=== PATIENT | female | born 1945 | race Caucasian/White ===

== ENCOUNTER 2019-12-02 09:42 | Outpatient (CLI) | payer MEDICARE, SELFPAY ==
--- NOTE | 2019-12-02 | ECHO_ITS ---
Patient Info Name: Loli Arreola Age: 74 years : 1945 Gender: Female Ht: 65 in Wt: 126 lbs BSA: 1.62 m2 HR: 60 bpm BP: 149 / 95 mmHg Heart Rhythm: Sinus Rhythm Technical Quality: Good Exam Date: 12/02/2019 10:19 AM Exam Location: [facility] Patient Status: Outpatient Admit Date: 12/02/2019 Staff Ordering Physician: Glenda, James Matias MD Life Skills Coordinator Volunteer: [employer] RDCS Attending Provider: Glenda, James Matias MD Referring Physician: Gerald PENA; Exam Type: CA echo doppler color flow Study Info Indications R00.2 - Palpitations Complete two-dimensional, color flow and Doppler transthoracic echocardiogram is performed. Strain analysis performed. History/Risk Factors Palpitations. Summary 1. Complete two-dimensional, color flow and Doppler transthoracic echocardiogram is performed. 2. Left ventricular chamber dimension is normal. 3. Left ventricular systolic function is normal, estimated at 60-65%. 4. The left ventricular diastolic function is grade I diastolic dysfunction. 5. E/e' 10 is mildly elevated. 6. Global longitudinal strain is normal at -17.3%. 7. There is mild mitral valve regurgitation. 8. There is trace tricuspid valve regurgitation. 9. No pulmonary hypertension, estimated pulmonary arterial systolic pressure is 26 mmHg. Left Ventricle E/e' 10 is mildly elevated. Global longitudinal strain is normal at -17.3%. Left ventricular chamber dimension is normal. Left ventricular systolic function is normal, estimated at 60-65%. The left ventricular diastolic function is grade I diastolic dysfunction. Right Ventricle Right ventricular chamber dimension is normal. Right ventricular systolic function is normal. Left Atria Left atrial chamber dimension is normal. Right Atria Right atrial chamber dimension is normal. Aortic Valve The aortic valve is trileaflet. There is no aortic valve stenosis. There is no aortic valve regurgitation. Pulmonic Valve There is no pulmonic regurgitation. Mitral Valve There is no mitral valve stenosis. There is mild mitral valve regurgitation. Tricuspid Valve There is trace tricuspid valve regurgitation. No pulmonary hypertension, estimated pulmonary arterial systolic pressure is 26 mmHg. Pericardium/Pleural There is no pericardial effusion. Inferior Vena Cava Normal inferior vena cava with >50% collapse upon inspiration consistent with normal right atrial pressure, 5 mmHg. Aorta The aortic root size at the sinus of Valsalva is normal. Left Ventricular Outflow Tract Name Value Normal LVOT 2D LVOT Diameter 1.9 cm LVOT Doppler LVOT Peak Gradient 4 mmHg LVOT Mean Gradient 2 mmHg LVOT VTI 22 cm LVOT VTI/AV VTI Ratio 0.7 LVOT Stroke Volume 65 ml LVOT CO 4.3 l/min LVOT CI 2.7 l/min/m2 Mitral Valve
--- NOTE | 2019-12-05 13:39 | P.PCNHOL_ITS ---
Holter/Event Monitor Holter/Event Monitor Date of procedure: 12/02/19 Procedure Type: 48 hour Holter monitor Diagnosis: palpitations Indications: palpitation Image/Tracing Quality: favorable Finding: the basic cardiac rhythm is sinus with full AV conduction. . The heart rate varied from a minimum of 44 to a maximum of 138 the mean rate was 69. There were no significant pauses or abnormalities of AV conduction the longest RR interval recorded was 1.5 seconds. Supraventricular ectopic activity was generally infrequent consisting of some PACs there were also 2 runs of supraventricular tachycardia the longest of which was 12 beats in duration the shorter run was only 4 beats in duration. Mild both of these occurred in the middle of the night between 205 and 2:46 a.m.. There were no examples of atrial fibrillation. Ventricular ectopic activity did not occur at all during this exam the patient submitted a diary in which 13 episodes of palpitations were recorded. One of these was sinus rhythm with a PAC the other 12 episodes were sinus rhythm with no ectopic activity at all. The episodes of SVT mentioned above occurred in the middle of the night presumably during sleeping hours and were not symptomatic. Conclusion: 1. Normal sinus rhythm with normal heart rate variability 2. infrequent episodes of atrial ectopic activity including 2 brief self- limited episodes of SVT which occurred during sleeping hours and are not symptomatic. 3. No ventricular ectopic activity at all Maikel Weinberg MD [facility]
== END 2019-12-02 09:43 | disposition home or self-care (01) ==
LOC: ANHCARD 09:45
PROVIDERS: PCP Internal Medicine; Visit Provider Internal Medicine
DX: R00.2 Palpitations (principal)
CPT/HCPCS: 93225; 93226; 93306

== ENCOUNTER 2021-03-09 22:23 | Emergency (ER) | payer MEDICARE, SELFPAY ==
[2021-03-09 22:25] VITALS: BP 145/99; PULSE 74; RESP 19; TEMP 36.4; O2SAT 97
--- NOTE | 2021-03-09 23:08 | PC.NURSE ---
Pt stated I just talked to my MD and since I'm feeling better he said I could go home and come back if it happens again. Ambulated out of ed with at side. steady, even, unassisted gait.
== END 2021-03-09 23:26 | disposition left against medical advice (07) ==
PROVIDERS: PCP Internal Medicine
DX: R10.9 Unspecified abdominal pain (principal)
CPT/HCPCS: 99199

== ENCOUNTER 2024-05-31 14:09 | Emergency (ER) | payer MEDICARE, SELFPAY ==
[2024-05-31 14:12] VITALS: BP 147/80; PULSE 91; RESP 16; TEMP 36.5; O2SAT 98
--- NOTE | 2024-05-31 15:17 | ED.DIZZY ---
HPI - Dizziness General Chief Complaint: Dizziness <Ezra Warren PA-C - Last Filed: 05/31/24 15:29> Stated Complaint: Dizziness/nausea-has inner ear infect <JANNA Rojas Last Filed: 05/31/24 15:29> Time Seen by Provider: 05/31/24 17:10 <Ezra Warren PA-C - Last Filed: 05/31/24 15:29> Focused HPI: This is a 79-year-old female who presents ED for chief complaint of dizziness x1 day. She recently just got over having the flu. States that she feels very full in her sinuses and his fullness to the bilateral ears, worse on the left. States that the dizziness is worse when turning to the left. States that she told her PCP about this who prescribed amoxicillin which she has taken for the past 2 days. States that she tried an A[place] maneuver at home which aided her symptoms enough to be able to drive to the ER. Denies fevers, chills, ear pain, mastoid pain, numbness, weakness. GENERAL: Well-appearing, well-nourished, and in no acute distress. HEAD: Normocephalic, atraumatic. ENT: Right TM mildly injected. No effusion. External canal normal. Left TM with serous effusion. Does not appear to be purulent. External canal normal. CHEST: Clear to auscultation. No respiratory distress. HEART: Regular rate and rhythm. NEURO: Alert and oriented x3. Patient screened in triage and initial orders placed. Additional care and disposition to be based upon diagnostic testing and treatment. <Ezra Warren PA-C - Last Filed: 05/31/24 15:29> Source: patient <JANNA Rojas Last Filed: 05/31/24 15:29> Mode of arrival: ambulatory <JANNA Rojas Last Filed: 05/31/24 15:29> Limitations: no limitations <JANNA Rojas Last Filed: 05/31/24 15:29> Related Data Allergies/Adverse Reactions: Allergies Allergy/AdvReac Type Severity Reaction Status Date / Time nickel Allergy Unknown * Verified 05/31/24 14:10 Alternaria Tenuis Allergy Unknown * Uncoded 05/31/24 14:10 <Ezra Warren PA-C - Last Filed: 05/31/24 15:29> Review of Systems Review of Systems: CONSTITUTIONAL: Denies fever EYES: Denies visual changes ENT: Reports congestion CARDIOVASCULAR: Denies chest pain RESPIRATORY: Denies dyspnea. GASTROINTESTINAL: Reports nausea, vomiting NEUROLOGIC: Denies numbness, or weakness. <Mila Sheriff PA-C - Last Filed: 05/31/24 19:24> All systems reviewed & are unremarkable except as noted in HPI and below <Mila Sheriff PA-C - Last Filed: 05/31/24 19:24> PMFSH Past Medical History Medical History: Medical History (Updated 05/31/24 @ 19:20 by Mila Sheriff PA-C) Vertigo <Ezra Warren PA-C - Last Filed: 05/31/24 15:29> Social History Social History: Social History (Updated 05/31/24 @ 17:43 by Mila Sheriff PA-C) Substance use: never <Ezra Warren PA-C - Last Filed: 05/31/24 15:29> Exam Narrative: GENERAL: Well-appearing, well-nourished, and in no acute distress. HEAD: Normocephalic, atraumatic. EYES: PERRLA and EOMI. ENT: Nares clear, no rhinorrhea or epistaxis. Mucous membranes moist. Oropharynx without tonsillar hypertrophy exudate or other lesions. Bilateral TMs pearly hurtado non-bulging. Serous effusion noted on the left NECK: Supple. No adenopathy or masses. CHEST: Clear to auscultation. No respiratory distress. No wheezes rales or rhonchi HEART: Regular rate and rhythm. No murmur heard. Normal peripheral pulses. EXTREMITIES: Normal range of motion. No edema. Strength equal in bilateral upper and lower extremities (5/5) SKIN: Warm, dry, no rash. NEURO: No focal deficits. Alert and oriented x3. Cranial nerves 2-12 grossly intact. Normal heel to krueger PSYCH: Normal mood and affect <Mila Sheriff PA-C - Last Filed: 05/31/24 19:24> Course Course Emergency Course: Patient updated on her workup. Reports feeling better. Ambulatory with a steady gait. Ready for discharge <Mila Sheriff PA-C - Last Filed: 05/31/24 19:24> Vital Signs Vital signs: Vital Signs Temperature 97.7 F 05/31/24 14:12 Pulse Rate 91 05/31/24 14:12 Respiratory Rate 16 05/31/24 14:12 Blood Pressure 147/80 H 05/31/24 14:12 Pulse Oximetry 98 05/31/24 14:12 Temperature 97.7 F 05/31/24 14:12 Pulse Rate 65 05/31/24 17:01 Respiratory Rate 16 05/31/24 17:01 Blood Pressure 135/76 05/31/24 17:01 Pulse Oximetry 99 05/31/24 17:01 <JANNA Rojas Last Filed: 05/31/24 15:29> Vital Signs Temperature 97.7 F 05/31/24 14:12 Pulse Rate 91 05/31/24 14:12 Respiratory Rate 16 05/31/24 14:12 Blood Pressure 147/80 H 05/31/24 14:12 Pulse Oximetry 98 05/31/24 14:12 Temperature 97.7 F 05/31/24 14:12 Pulse Rate 65 05/31/24 17:01 Respiratory Rate 16 05/31/24 17:01 Blood Pressure 135/76 05/31/24 17:01 Pulse Oximetry 99 05/31/24 17:01 <Mila Sheriff PA-C - Last Filed: 05/31/24 19:24> MDM - Dizziness MDM Narrative Medical decision making narrative: Patient presents the emergency department for acute on chronic dizziness. She is afebrile and nontoxic appearing. Her vitals are stable. CBC metabolic panel without concerning findings. EKG without concerning changes. Patient was hydrated with IV fluids; given meclizine, Zofran. Patient was updated on her workup and agrees with plan of care. Reports feeling better. Ambulatory with a steady gait. She is to follow up with primary provider. She was given warnings to return to the ER <JANNA Quiles Last Filed: 05/31/24 19:24> Differential Diagnosis Differential diagnosis: Likely adverse reaction to drug, benign paroxysmal positional vertigo, orthostatic hypotension and other (Serous otitis media) <Mila Sheriff PA-C - Last Filed: 05/31/24 19:24> Lab Data Attestation: I reviewed the patient's lab results. <Mila Sheriff PA-C - Last Filed: 05/31/24 19:24> Result diagrams: 05/31/24 15:25 05/31/24 15:25 <Ezra Warren PA-C - Last Filed: 05/31/24 15:29> Labs: Lab Results 05/31/24 Range/Units 15:25 WBC 5.1 (4.5-10.0) K/mm3 RBC 4.35 (4.2-5.4) M/mm3 Hgb 14.6 (12.0-15.0) g/dL Hct 42.9 (37.0-47.0) % MCV 98.6 (80-100) fl MCH 33.6 (26-34) pg MCHC 34.0 (32-36) g/dl RDW 11.7 (11.5-14.5) % Plt Count 221 (150-375) k/mm3 MPV 10.0 (7.4-10.4) fl Immature Gran % (Auto) 0.4 (0-0.5) % Neut % (Auto) 50.3 (45.5-73.1) % Lymph % (Auto) 40.9 (18.3-44.2) % [place] % (Auto) 7.4 (2.6-8.5) % Eos % (Auto) 0.4 (0-4.4) % Baso % (Auto) 0.6 (0.2-1.2) % Lymph # (Auto) 2.09 (0.9-3.2) K/mm3 [place] # (Auto) 0.4 (0.1-0.6) K/mm3 Eos # (Auto) 0.0 (0-0.3) K/mm3 Baso # (Auto) 0.0 (0.0-0.1) K/mm3 Abs Immat Gran (auto) 0.02 (0.00-0.031) K/mm3 Absolute Neuts (auto) 2.6 (1.3-6.7) K/mm3 Absolute Nucleated RBC 0.000 (0.0-0.012) K/mm3 Nucleated RBC % 0.0 (0.0-0.2) % PT 13.6 (11.1-14.7) Seconds INR 1.0 APTT 25.1 (22.3-36.8) Seconds Sodium 140 (137-145) mmol/L Potassium 4.1 (3.4-5.0) mmol/L Chloride 107 (98-107) mmol/L Carbon Dioxide 25 (22-30) mmol/L Anion Gap 8 (4-12) mmol/L BUN 22 H (7-17) mg/dL Creatinine 0.71 (0.7-1.0) mg/dL Estim Creat Clear Calc 51 ml/min Estimated GFR > 60 (59 - ) Glucose 96 (65-110) mg/dL Calcium 9.1 (8.4-10.2) mg/dL Total Bilirubin 0.3 (0.2-1.3) mg/dL AST 29 (14-36) U/L ALT 24 (6-35) U/L Alkaline Phosphatase 59 (38-126) U/L Total Protein 7.0 (6.3-8.2) g/dL Albumin 4.4 (3.5-5.1) g/dL <Ezra Warren PA-C - Last Filed: 05/31/24 15:29> Lab Results 05/31/24 Range/Units 15:25 WBC 5.1 (4.5-10.0) K/mm3 RBC 4.35 (4.2-5.4) M/mm3 Hgb 14.6 (12.0-15.0) g/dL Hct 42.9 (37.0-47.0) % MCV 98.6 (80-100) fl MCH 33.6 (26-34) pg MCHC 34.0 (32-36) g/dl RDW 11.7 (11.5-14.5) % Plt Count 221 (150-375) k/mm3 MPV 10.0 (7.4-10.4) fl Immature Gran % (Auto) 0.4 (0-0.5) % Neut % (Auto) 50.3 (45.5-73.1) % Lymph % (Auto) 40.9 (18.3-44.2) % [place] % (Auto) 7.4 (2.6-8.5) % Eos % (Auto) 0.4 (0-4.4) % Baso % (Auto) 0.6 (0.2-1.2) % Lymph # (Auto) 2.09 (0.9-3.2) K/mm3 [place] # (Auto) 0.4 (0.1-0.6) K/mm3 Eos # (Auto) 0.0 (0-0.3) K/mm3 Baso # (Auto) 0.0 (0.0-0.1) K/mm3 Abs Immat Gran (auto) 0.02 (0.00-0.031) K/mm3 Absolute Neuts (auto) 2.6 (1.3-6.7) K/mm3 Absolute Nucleated RBC 0.000 (0.0-0.012) K/mm3 Nucleated RBC % 0.0 (0.0-0.2) % PT 13.6 (11.1-14.7) Seconds INR 1.0 APTT 25.1 (22.3-36.8) Seconds Sodium 140 (137-145) mmol/L Potassium 4.1 (3.4-5.0) mmol/L Chloride 107 (98-107) mmol/L Carbon Dioxide 25 (22-30) mmol/L Anion Gap 8 (4-12) mmol/L BUN 22 H (7-17) mg/dL Creatinine 0.71 (0.7-1.0) mg/dL Estim Creat Clear Calc 51 ml/min Estimated GFR > 60 (59 - ) Glucose 96 (65-110) mg/dL Calcium 9.1 (8.4-10.2) mg/dL Total Bilirubin 0.3 (0.2-1.3) mg/dL AST 29 (14-36) U/L ALT 24 (6-35) U/L Alkaline Phosphatase 59 (38-126) U/L Total Protein 7.0 (6.3-8.2) g/dL Albumin 4.4 (3.5-5.1) g/dL <Mila Sheriff PA-C - Last Filed: 05/31/24 19:24> ECG Data EKG #1: ECG completion date: 05/31/24 <Mila Sheriff PA-C - Last Filed: 05/31/24 19:24> EKG Interpretation: normal rate, sinus rhythm, no ST changes and normal QT <Mila Sheriff PA-C - Last Filed: 05/31/24 19:24> Critical Care Time Critical Care Time Critical Care Time: No <Mila Sheriff PA-C - Last Filed: 05/31/24 19:24> Discharge Plan Discharge Clinical Impression: Dizziness <Ezra Warren PA-C - Last Filed: 05/31/24 15:29> Patient Disposition: Home, Self-Care <Ezra Warren PA-C - Last Filed: 05/31/24 15:29> Condition: Improved <Ezra Warren PA-C - Last Filed: 05/31/24 15:29> Instructions: Dizziness (ED) <Ezra Warren PA-C - Last Filed: 05/31/24 15:29> Additional Instructions: Return to the emergency department if you experience fever, chest pain, shortness of breath, vomiting, weakness, numbness, or any other symptoms that are concerning to you. Take Zyrtec and use Flonase daily to help with congestion. Remain well hydrated. Meclizine as needed for dizziness Follow up with your primary care doctor and/or ENT <Ezra Warren PA-C - Last Filed: 05/31/24 15:29> Patient Language: Bengali <Ezra Warren PA-C - Last Filed: 05/31/24 15:29> Prescriptions: New meclizine 25 mg tablet 25 mg PO BID PRN (Reason: dizziness) Qty: 10 0RF <JANNA Rojas Last Filed: 05/31/24 15:29> Follow-up/Referrals: Jamey Sanchez MD [Physician] - Duarte,Jmaes Matias MD [Primary Care Provider] - <Ezra Warren PA-C - Last Filed: 05/31/24 15:29>
--- NOTE | 2024-05-31 15:20 | ECG_ITS ---
Test Date: 2024-05-31 15:29:18 Measurements Intervals [place] Rate: 67 P: 66 UT: 173 QRS: 84 QRSD: 102 T: 58 QT: 397 QTc: 420 Interpretive Statements SINUS RHYTHM POSSIBLE LEFT ATRIAL ENLARGEMENT [-0.1mV P WAVE IN V1/V2] INCOMPLETE RIGHT BUNDLE BRANCH BLOCK [90+ ms QRS DURATION, TERMINAL R IN V1/V2, 40+ ms S IN I/aVL/V4/V5/V6] NONSPECIFIC T-WAVE ABNORMALITY ABNORMAL ECG Electronically Signed On 06-01-2024 12:11:34 CDT by Santos Rayo M.D.
[2024-05-31 15:37] LABS: Basophils Percent Auto 0.6 % (0.2-1.2); Eosinophils Percent Auto 0.4 % (0-4.4); Hematocrit 42.9 % (37.0-47.0); Hemoglobin 14.6 g/dL (12.0-15.0); Immature Granulocyte Absolute 0.02 K/mm3 (0.00-0.031); Immature Granulocyte Percent A 0.4 % (0-0.5); Lymphocytes Absolute Auto 2.09 K/mm3 (0.9-3.2); Lymphocytes Percent Auto 40.9 % (18.3-44.2); Mean Corpuscular Hemoglobin 33.6 pg (26-34); Mean Corpuscular Volume 98.6 fl (80-100); Monocytes Absolute Auto 0.4 K/mm3 (0.1-0.6); Monocytes Percent Auto 7.4 % (2.6-8.5); Neutrophils Absolute Auto 2.6 K/mm3 (1.3-6.7); Neutrophils Percent Auto 50.3 % (45.5-73.1); Platelet Count Result 221 k/mm3 (150-375); Red Blood Count 4.35 M/mm3 (4.2-5.4); Red Cell Distribution Width 11.7 % (11.5-14.5); White Blood Count 5.1 K/mm3 (4.5-10.0)
[2024-05-31 15:46] LABS: Alanine Aminotransferase 24 U/L (6-35); Albumin Level 4.4 g/dL (3.5-5.1); Alkaline Phosphatase 59 U/L (38-126); Anion Gap 8 mmol/L (4-12); Aspartate Amino Transferase 29 U/L (14-36); Bilirubin,Total 0.3 mg/dL (0.2-1.3); Blood Urea Nitrogen 22 mg/dL (7-17); Calcium 9.1 mg/dL (8.4-10.2); Carbon Dioxide 25 mmol/L (22-30); Chloride 107 mmol/L (98-107); Estimated CRCL calculation 51 ml/min; Estimated Glomerular Filt Rate > 60; Glucose 96 mg/dL (65-110); Potassium 4.1 mmol/L (3.4-5.0); Sodium 140 mmol/L (137-145)
[2024-05-31 15:47] LABS: Prothrombin Time 13.6 Seconds (11.1-14.7)
[2024-05-31 15:48] LABS: Partial Thromboplastin Time 25.1 Seconds (22.3-36.8)
--- OUTSIDE RECORDS SUMMARY | 2024-05-31 15:52 | XMS_ITS | Clinical Summary ---
Author Organization [facility] Address [address] [address] Care Team Providers Care Rack Puncher Name Role Phone James Duarte MD Primary Care Provider Constantino Pat MD Unavailable [phone] Allergies Active Allergy Reactions Criticality Noted Date Comments Imiquimod Rash Medium 08/18/2017 Nickel Unknown Medications cholecalciferol (VITAMIN D-3) 2000 unit capsule Take 2 capsules (4,000 Units total) by mouth daily 8 Active estradioL (ESTRACE) 0.01 % (0.1 mg/gram) vaginal cream Insert 1 g into the vagina once a week 7 Active vitamin b complex tablet 7 Active vitamin K2 40 mcg tablet Take by mouth Active ammonium lactate (LAC-HYDRIN) 12 % lotion ammonium lactate 12 % lotion apply to feet twice daily as needed 1 Active denosumab (PROLIA) 60 mg/mL syringeIndications: postmenopausal osteoporosis and high fracture risk Inject 1 mL (60 mg total) under the skin once for 1 dose 1 mL 3 Active denosumab (PROLIA) 60 mg/mL syringe Inject 1 mL (60 mg total) under the skin once for 1 dose Inject one syringe SC every six months 1 mL 4 3 Active ondansetron ODT (ZOFRAN-ODT) 8 mg disintegrating tablet take one every four hours as needed for nausea Active Active Problems Problem Noted Date Diagnosed Date Meibomian gland dysfunction (MGD) of both eyes 0 04/03/2022 Assessment & Plan (04/03/2022 11:25 AM HOUSE CALLS NURSE): -pt c/o fluctuating vision; improves when using Blink drops (gtts) (+)meibomian gland dysfunction (MGD) both eyes (OU) today -rec warm compresses; discussed rice sock as alternative option to warm washcloth -ok to continue blink prn -follow PVD (posterior vitreous detachment), left 2022 Assessment & Plan (04/03/2022 11:25 AM HOUSE CALLS NURSE): -longstanding per pt (-)retinal h/b/t noted in either eye today -s/s retinal detachment (RD) discussed; RTC BE if any sudden increase in floaters, flashes of light, or curtain over vision arise -follow 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 She wears distance only glasses for driving. Release updated glasses prescription. 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 Malignant melanoma 08/13/2016 Melanoma in situ of the skin 08/08/2016 Basal cell carcinoma of skin 07/31/2016 Actinic keratosis 06/27/2016 Scar 06/27/2016 History of nonmelanoma skin cancer 12/05/2015 Rash 11/14/2015 Pain of foot 01/02/2014 Atrophic vaginitis 01/07/2012 Palpitations 07/18/2011 Osteoporosis 06/24/2010 Encounter for preventive health examination 07/14 Encounters Date Type Department Care Team Description 05/24/2024 9:30 AM CDT Infusion [facility] Injection Therapy [address] [facility] [address] [place] [address] Age-related osteoporosis without current pathological fracture (Primary Dx) from Last 3 Months Immunizations Immunization Administration Dates Next Due Influenza, Trivalent, High D ose, Split, Preservative Free, Intramuscular 12/03/2017,11/28/2016,12/31/2015,12/11 Influenza, Trivalent, Preser vative Free, Intramuscular 01/10/2011 Pfizer SARS-CoV-2 Monovalent Vaccination (12+ Yrs) PURPLE 10/30/2020,04/11/2020 Pneumococcal Conjugate PCV 13 08/29/2014 Pneumococcal Polysaccharide PPV23 01/10/2011 ZOSTER Recombinant 01/18/2018 Surgical History Surgery Date Site/Laterality Comments MD DELIVERY ONLY Section - (Added by TW Conv) MD TONSILLECTOMY PRIMARY/SEC ONDARY <AGE 12 Tonsillectomy - (Added by TW Conv) EYE SURGERY Medical History Medical History Date Comments History of recurrent pneumonia P neumonia - (Added by TW Conv) Acute hemolytic transfusion reaction Acute Blood Transfusion Hemolysis - (Added by TW Conv) Personal history of other di seases of the circulatory system History of mitral valve prol apse - (Added by TW Conv) Postmenopausal atrophic vaginitis Postmenopausal atrophic vaginitis - (Added by TW Conv) Basal cell carcinoma of skin of other part of trunk Basal cell carcinoma of ches t - (Added by TW Conv) Personal history of other ma lignant neoplasm of skin History of basal cell carcin areli - (Added by TW Conv) Basal cell carcinoma of skin of nose Basal cell carcinoma of nose - (Added by TW Conv) Age-related osteoporosis wit hout current pathological fracture Osteoporosis - (Added by TW Conv) Palpitations Palpitations - ( Added by TW Conv) Age-related osteoporosis wit hout current pathological fracture Osteoporosis - (Added by TW Conv) History of transfusion Family History Medical History Relation Name Comments Diabetes Maternal Grandfather Diabete s Mellitus - (Added by TW Conv) Stroke Mother Stroke Syndrome - (Added by TW Conv) Breast cancer Mother's Sister 1 Breast Ca ncer - (Added by TW Conv) Colon cancer Mother's Sister 2 Malignant Neoplasm, Colon - (Added by TW Conv) Hip fracture Neg Hx Osteoporosis Neg Hx Relation Name Status Comments Maternal Grandfather Mother Mother's Sister 1 Mother's Sister 2 Social History Tobacco Use Types Packs/Day Years Used Date Smoking Tobacco: Never Smokeless Tobacco: Never Tobacco Cessation:Counseling Given: Not Answered Alcohol Use Standard Drinks/Week Comments Yes 7 (1 standard drink = 0.6 oz pur e alcohol) glass of wine a night Comments Unknown Sex and Gender Information Value Date Recorded Sex Assigned at Not on file Legal Sex Female 12:05 PM HOUSE CALLS NURSE Gender Identity Female 01/10/2019 6:25 AM CDT Sexual Orientation Not on file Obstetrics History Last Filed Vital Signs Vital Sign Reading Time Taken Comments Blood Pressure 120/72 07/22/2021 12:25 PM CDT Pulse 82 07/22/2021 12:25 PM CDT Temperature 37.1 C (98.8 F) 06/28/2018 12:55 PM CDT Respiratory Rate 16 11/09/2017 9:49 AM CDT Oxygen Saturation 96% 07/22/2021 12:25 PM CDT Inhaled Oxygen Concentration - - Weight 60.3 kg (133 lb) 10/27/2023 8:48 AM CDT Height 163.2 cm (5' 4.25 ) 10/27/2023 8:48 AM CD T Body Mass Index 22.65 10/27/2023 8:48 AM CDT Plan of Treatment Health Maintenance Due Date Last Done Comments Depression Screening 1945 Fall Risk Assessment 1945 Hepatitis C Screening 1945 DTaP/Tdap/Td Vaccine (1 - Tdap) 1957 Hepatitis B Screening 1964 Well Visit 65+ 2011 Zoster Vaccine (2 of 2) 03/15/2018 01/18/2018 Pneumococcal vaccine 65+ (3 of 3 - PCV20 or PCV21) 08/30/2019 08/29/2014, 01/10/2011 Covid-19 Vaccine (2023-2 5 season) 2023 06/17/2021, 10/30/2020, 05/17/2020, Additional history exists Influenza Vaccine (#1) 2023 , 12/28/2021, 12/03/2017, Additional history exists Osteoporosis Screening-Bone Density Scan 10/26/2025 10/27/2023, 05/14/2022, 11/28/2020, Additional history exists Breast Cancer Screening-Mammogram Discontinued 015, 06/03/2011 Procedures Procedure Name Priority Date/Time Associated Diagnosis Comments DEXA TBS AXIAL SKELETON BONE DENSITY 1 OR MORE SITES Schedule Routine, Read Routine (OP Routine) 10/27/2023 8:43 AM CDT Age-related osteoporosis without current pathological fracture from Last 3 Months or Most Recently Relevant to Health Maintenance Results * Dexa TBS Axial Skeleton Bone Density 1 or more sites (10/27/2023 8:43 AM CDT) Anatomical Region Laterality Modality Wrist, Body N/A Radiographic Nciole ging Narrative 10/27/2023 9:46 AM CDT Patient Name: Loli Martinez Date of : 1945 Date of scan: 10/27/2023 Bone mineral density was performed on a H[employer] Discovery Densitometer. Based on machine cross-calibration and precision studies the least significant changes of this densitometer is 0.024 g/cm2 at the spine, 0.020 g/cm2 at the total proximal femur, and 0.014g/cm2 at the forearm. HISTORY: This is a 78 y.o. postmenopausal female with a history of osteoporosis. She reports that she has never smoked. She has never used smokeless tobacco. Currently on treatment with vitamin D and denosumab (Prolia) and previously treated with zoledronic acid (Reclast). INDICATIONS: Menopause status, treatment monitoring, and history of osteoporosis. FINDINGS: BONE MINERAL DENSITY OF THE LUMBAR SPINE Bone Mineral Density (BMD) of the lumbar spine was measured from L1-L4 and the average density was calculated to be 0.794 gm/cm2. This corresponds to a T-score (standard deviations from the mean of young adults) of -2.3. When compared to the previous study of 05/14/2022 there has been a 0.035 gm/cm (4.6%) increase in bone density that is considered significant. BONE MINERAL DENSITY OF THE PROXIMAL FEMUR Bone Mineral Density (BMD) of the left hip total was found to be 0.803 gm/cm2. This corresponds to a T-score standard deviations from the mean of young adults of -1.1. Femoral neck is 0.621 gm/cm2 with a T-score (standard deviations from the mean of young adults) of -2.1. When compared to the previous study of 05/14/2022 there has been a -0.036 gm/cm (-4.3%) decrease in bone density that is considered significant. SUMMARY: Bone mineral density shows evidence of low bone mass at the lumbar spine and proximal femur and moderately increased fracture risk (Osteopenia). There is a significant increase noted in the spine and a significant decrease noted in the hip since the previous exam. The lumbar spine Trabecular Bone Score is 1.249 which suggests partially degraded bone microarchitecture compared to the general population. Final decisions regarding diagnostic or therapeutic recommendations should include BMD, TBS, additional clinical risk factors as well the clinical context of the patient. Please see attached TBS results for further details. ADDITIONAL COMMENTS: Postmenopausal Women and Men Over 50: Diagnostic criteria: Osteoporosis: BMD at or below -2.5 T-score; Osteopenia (low bone mass): BMD between -1.0 and -2.5 T-score. If the patient has a history of a fragility fracture, a fracture that occurred with trauma equivalent to a fall from a standing position or less, then the diagnosis is osteoporosis regardless of bone density. The history and data sections of the bone mineral density scan were prepared by Sol Genao) LUANA who is accredited by the International Society of Clinical Densitometry. The overall patient assessment and scan interpretation were performed by Corrina Chowdhury MD who is certified by the International Society of Clinical Densitometry. [id number] Ailin Henderson MD IMG DXA PROCEDURES Final Resu lt from Last 3 Months or Most Recently Relevant to Health Maintenance Insurance MEDICARE [facility] MEDICARE [employer] MEDICARE SUPPLEMENT MEDICARE [facility] MEDICARE Care Teams Rack Puncher Relationship Specialty Start Date End Date James Duarte MD [address] [facility] [address] [place] [address] PCP - General Internal Medicine 02/01/19 Constantino Pat MD [address] [facility] [place] [address] Regional Branch Manager Dermatology 01/03/21
--- OUTSIDE RECORDS SUMMARY | 2024-05-31 15:52 | XMS_ITS ---
Author Organization [facility] Address [address] [address] Care Team Providers Care Outreach Team Member Name Role Phone James Duarte MD Primary Care Provider Constantino Pat MD Unavailable Active Problems Problem Noted Date Diagnosed Date Meibomian gland dysfunction (MGD) of both eyes 0 04/03/2022 Assessment & Plan (04/03/2022 11:25 AM SUPPLY CHAIN VICE PRESIDENT): -pt c/o fluctuating vision; improves when using Blink drops (gtts) (+)meibomian gland dysfunction (MGD) both eyes (OU) today -rec warm compresses; discussed rice sock as alternative option to warm washcloth -ok to continue blink prn -follow PVD (posterior vitreous detachment), left 2022 Assessment & Plan (04/03/2022 11:25 AM SUPPLY CHAIN VICE PRESIDENT): -longstanding per pt (-)retinal h/b/t noted in either eye today -s/s retinal detachment (RD) discussed; RTC BE if any sudden increase in floaters, flashes of light, or curtain over vision arise -follow 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 She wears distance only glasses for driving. Release updated glasses prescription. Assessment & Plan (04/03/2022 11:27 AM SUPPLY CHAIN VICE PRESIDENT): -status post (s/p) YAG per pt -pt [...] 06/24/2010 Encounter for preventive health examination 07/14 Current Treatment and Therapy Plans No current plan information found. Other Current Plans DENOSUMAB (PROLIA) INJECTION* Plan Start Date:05/14/2022 Plan Provider:Corrina Chowdhury MD Linked Problems Age-related osteoporosis wit hout current pathological fracture Treatment Medications No medications scheduled. Past Treatment and Therapy Plans
--- OUTSIDE RECORDS SUMMARY | 2024-05-31 15:52 | XMS_ITS | Referral Summary ---
Author Organization [facility] Address [address] [place] [address] Care Team Providers Care Quickbooks Bookkeeper Name Role Phone James Duarte MD Primary Care Provider Constantino Pat MD Unavailable [phone] Encounters Date Type Department Care Team Description 05/24/2024 9:30 AM CDT Infusion [facility] Injection Therapy [address] [place] [address] Age-related osteoporosis without current pathological fracture (Primary Dx) from Last 3 Months Allergies Active Allergy Reactions Criticality Noted Date [...] 04/03/2022 Assessment & Plan (04/03/2022 11:25 AM CYTOTECHNOLOGIST): -pt c/o fluctuating vision; improves when using Blink drops (gtts) (+)meibomian gland dysfunction (MGD) both eyes (OU) today -rec warm compresses; discussed rice sock as alternative option to warm washcloth -ok to continue blink prn -follow PVD (posterior vitreous detachment), left 2022 Assessment & Plan (04/03/2022 11:25 AM CYTOTECHNOLOGIST): -longstanding per pt (-)retinal h/b/t noted in either eye today -s/s retinal detachment (RD) discussed; RTC BE if any sudden increase in floaters, flashes of light, or curtain over vision arise -follow 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 She wears distance only glasses for driving. Release updated glasses prescription. Assessment & Plan (04/03/2022 11:27 AM CYTOTECHNOLOGIST): -status post (s/p) YAG per pt -pt [...] 06/24/2010 Encounter for preventive health examination 07/14 Immunizations Immunization Administration Dates Next Due Influenza, Trivalent, High D ose, Split, Preservative Free, Intramuscular 12/03/2017,11/28/2016,12/31/2015,12/11 Influenza, Trivalent, Preser vative Free, Intramuscular 01/10/2011 Pfizer SARS-CoV-2 Monovalent Vaccination (12+ Yrs) PURPLE 10/30/2020,04/11/2020 Pneumococcal Conjugate PCV 13 08/29/2014 Pneumococcal Polysaccharide PPV23 01/10/2011 ZOSTER Recombinant 01/18/2018 Social History Tobacco Use Types Packs/Day Years Used Date Smoking Tobacco: Never Smokeless Tobacco: Never Tobacco Cessation:Counseling Given: Not Answered Alcohol Use Standard Drinks/Week Comments Yes 7 (1 standard drink = 0.6 oz pur e alcohol) glass of wine a night Comments Unknown Sex and Gender Information Value Date Recorded Sex Assigned at Not on file Legal Sex Female 12:05 PM CYTOTECHNOLOGIST Gender Identity Female 01/10/2019 6:25 AM CDT Sexual Orientation Not on file Last Filed Vital Signs Vital Sign Reading [...] 10/27/2023 8:48 AM CDT Plan of Treatment Not on file Procedures Procedure Name Priority Date/Time Associated Diagnosis [...] Region Laterality Modality Wrist, Body N/A Radiographic Nicole ging Narrative 10/27/2023 9:46 AM CDT Patient Name: Loli Martinez Date of : 1945 Date of scan: 10/27/2023 Bone mineral density was performed on a [employer] Discovery Densitometer. Based on machine cross-calibration and [...] mineral density scan were prepared by Sol Cabral(Ca) LUANA who is accredited by the International Society of Clinical Densitometry. The overall patient assessment and scan interpretation were performed by Corrina Chowdhury MD who is certified by the International Society of Clinical Densitometry. [id number] Ailin Henderson MD IMG DXA PROCEDURES Final Resu lt from Last 3 Months or Most Recently Relevant to Health Maintenance Insurance MEDICARE [facility] MEDICARE [employer]UE [employer] MEDICARE SUPPLEMENT MEDICARE [facility] MEDICARE Care Teams Quickbooks Bookkeeper Relationship Specialty Start Date End Date James Duarte MD [address] [facility] [address] [place] [address] PCP - General Internal Medicine 02/01/19 Constantino Pat MD [address] [facility] [place] [address] Roof Mechanic Dermatology 01/03/21
--- OUTSIDE RECORDS SUMMARY | 2024-05-31 15:53 | XMS_ITS | Data Portability ---
Author Organization [place] - [facility] [employer], Main Office Address [address] [place] [address] Care Team Providers Care Electromechanical Technician Name Role Phone DUARTE ALAN Primary Care Provider ALAN DUARTE Referring Provider Assessment No assessment recorded. Plan of Treatment Reminders Order Date Submit Date Provider Last Modified By Organization Details Last Modified Time Details Appointments None recorded. Lab vitamin D, 25-hydrox y, total, serum 024 [id number] [facility] - Outpatient Lab, [address] [place], [address], 4 10:12:00 CBC w/ auto diff 024 [id number] [facility] - Outpatient Lab, [address] [place], [address], 4 10:12:00 lipid panel, serum 024 [id number] [facility] Outpatient Lab, [address] [place], [address], 4 10:12:00 CMP, serum or plasma 024 [id number] [facility] Outpatient Lab, [address] [place], [address], 4 10:12:00 T4, free, serum 024 024 [facility] Out[facility] Lab, [address] [place], [address], 4 10:12:00 TSH, serum or plasma 024 024 [id number] [facility] Outpatient Lab, [address] [place], [address], 4 10:12:00 vitamin D, 25-hydrox y, total, serum 023 023 [id number] [facility] Outpatient Lab, [address] [place], [address], 4 09:42:29 lipid panel, serum 023 023 [facility], [address] [place], [address], 4 13:18:42 CMP, serum or plasma 023 023 [facility], [address] [place], [address], 4 13:18:48 CBC w/ auto diff 023 023 [facility], [address] [place], [address], 4 12:58:19 TSH, ultra-sen sitive, serum [id number] [facility], [address] [place], [address], 4 09:42:29 T4, free, serum [address] [facility] Outpatient Lab, [address] [place], [address], 4 13:32:10 Referral None recorded. Procedures None recorded. Surgeries None recorded. Imaging None recorded. Medication Orders None recorded. Patient TargetsNo targets recorded. Patient Instructions Encounter Date Encounter Id Patient Instructions Last Modified By Organization Details Last Modified Time 02/20/2023 [id number] dementia rating scale-2* [email or web address] Not available 02/20/2023 11:13:21 alcohol misuse* [email or web address] Not available 02/20/2023 11:13:22 depression screening* [email or web address] Not available 02/20/2023 11:13:22 Timed Up and Go test (TUG)* [email or web address] Not available 02/20/2023 11:13:22 multi-dimensiona l health assessment questionnaire* Not available 02/20/2023 11:13:21 Personalized a lt Plan and Screening Recommendations Advance Directives - Do you have one? Yes Advance Directives - Do we have your advance directive on file in your health record? Yes Primary Prevention/Interven tion (prevents or decreases the chance of common diseases from occurring) Smoking Risk: Non Smoker Alcohol Misuse Screening: Negative Weight: Appropriate Physical activity: Appropriate physical activity Nutrition: Good Fall Risk (screened today): Low Vaccines Pneumococcal: Ordered Recommended today Recommended today, but you have declined No further needed Influenza: Chronic Disease Risks Stroke: Low Risk I have no recommendations Heart Attack: Low risk I have no recommendations Clogging of the Arteries: Low risk I have no recommendations Diabetes: Low Risk I have no recommendations Secondary Prevention/Interven tion (detects treatable diseases before they may cause symptoms, disability, or ) Breast Cancer Screening with mammogram: Your next mammogram: Ordered Recommended today Cervical/Uterine/Ov kay Cancer Screening: No screening necessary Osteoporosis Screening: Date Screening Last Performed: Colon Cancer Screening: Colonoscopy In: Ordered Recomme nded Recommended today, but you have declined Date Screening Last Performed: Eye Disease Screening: Dementia Risk: Low I have no recommendations Depression Screening: Negative [email or web address] Not available 02/20/2023 11:08:05 Medicare wellnes s evaluation risk assessment stable. Follow-up for a Right renal mass And osteoporosis. Clinically stable. Check blood work consisting of CBC, CMP, lipid, thyroid and vitamin-D level. Will continue on current Rx follow-up in one year Portions of the record may have been created with voice recognition software. Occasional wrong-word or [id number] substitutions may have occurred due to the inherent limitations of voice recognition software. Read the chart carefully and recognize, using context, where substitutions have occurred. [email or web address] Not available 02/20/2023 11:13:00 02/23/2024 [id number] dementia rating scale-2* [email or web address] Not available 02/23/2024 10:57:38 alcohol misuse* [email or web address] Not available 02/23/2024 10:57:39 depression screening* [email or web address] Not available 02/23/2024 10:57:38 multi-dimensiona l health assessment questionnaire* [email or web address] Not available 02/23/2024 10:57:38 Personalized a lt Plan and Screening Recommendations Advance Directives - Do you have one? Yes Advance Directives - Do we have your advance directive on file in your health record? Yes Primary Prevention/Interven tion (prevents or decreases the chance of common diseases from occurring) Smoking Risk: Non Smoker Alcohol Misuse Screening: Negative Weight: Appropriate Physical activity: Need more exercise/physical activity Nutrition: Good Fall Risk (screened today): Low Vaccines Pneumococcal: Ordered Recommended today Recommended today, but you have declined No further needed Influenza: Chronic Disease Risks Stroke: Low Risk I have no recommendations Heart Attack: Low risk I have no recommendations Clogging of the Arteries: Low risk I have no recommendations Diabetes: Low Risk I have no recommendations Secondary Prevention/Interven tion (detects treatable diseases before they may cause symptoms, disability, or ) Breast Cancer Screening with mammogram: Your next mammogram: Ordered Recommended today Recommended today, but you have declined Cervical/Uterine/Ov kay Cancer Screening: No screening necessary Osteoporosis Screening: Date Screening Last Performed: Colon Cancer Screening: Colonoscopy In: Ordered Recomme nded Recommended today, but you have declined Date Screening Last Performed: Eye Disease Screening: Dementia Risk: Low I have no recommendations Depression Screening: Negative [email or web address] Not available 02/23/2024 10:47:36 Medicare evaluat ion risk assessment stable. Follow-up for renal mass, osteoporosis and GERD all clinically stable. He is refusing have other diagnostic studies done at this time. Will check blood work consisting of CBC, CMP, lipid, thyroid and vitamin-D level. Will continue on current Rx will start on some omeprazole 20 mg once daily to see if there is any improvement in her symptomatology if not will need an upper endoscopy. Has had a flu and COVID shot. He is looking to get the RSV. Otherwise is clinically stable. Follow-up in one year Follow Up: 1 Year Approximate Date: 02/22/2025 Portions of the record may have been created with voice recognition software. Occasional wrong-word or [id number] substitutions may have occurred due to the inherent limitations of voice recognition software. Read the chart carefully and recognize, using context, where substitutions have occurred. Created: Alan Duarte M.D. 02.23.2024 09:57 AM Not available 02/23/2024 10:57:20 Reason for Referral None Reported. Results Created Date Observation Date Name Description Value Unit Range Abnormal Flag Note LastModifiedBy Organization Detail LastModifiedTime 02/26/2002/25/2022 TSH thyroid-stim ulating hormone 2.260 uIU/m L 0.465- 4.680 Not Available [facility] (Lab) [address] [place], [address], 02/25/2022 22:26:43 02/26/20 22 02/25/2022 VITAM IN B12 (SANTIAGO POLLY ) vb12 704 pg/mL 239-93 1 Not Available [facility] (Lab) [address] [place], [address], 02/25/2022 13:58:19 02/26/20 22 02/25/2022 T4 FREE free T4 0.90 NG/dL 0.78-2 .19 Not Available [facility] (Lab) [address] [place], [address], 02/25/2022 13:21:28 02/26/20 22 02/25/2022 CBC/C OMPLE TE BLD COUNT W/DIF F white blood cells 3.5 x10'3 /uL 4.2-10 .8 low Not Available [facility] (Lab) [address] [place], [address], 02/25/2022 13:20:41 02/26/20 22 02/25/2022 CBC/C OMPLE TE BLD COUNT W/DIF F red blood cells 4.43 x10'6 /uL 3.80-5 .20 Not Available [facility] (Lab) [address] [place], [address], 02/25/2022 13:20:41 02/26/20 22 02/25/2022 CBC/C OMPLE TE BLD COUNT W/DIF F hemoglobin 15.1 g/dL 12.0-1 5.6 Not Available [facility] (Lab) [address] [facility] [place] [place], [address], 02/25/2022 13:20:41 02/26/20 22 02/25/2022 CBC/C OMPLE TE BLD COUNT W/DIF F hematocrit 45.0 % 35.7-4 5.7 Not Available [facility] (Lab) [address] [place], [address], 02/25/2022 13:20:41 02/26/20 22 02/25/2022 CBC/C OMPLE TE BLD COUNT W/DIF F mean red cell volume 101.6 fL 82.0-9 9.0 high Not Available [facility] (Lab) [address] [place], [address], 02/25/2022 13:20:41 02/26/20 22 02/25/2022 CBC/C OMPLE TE BLD COUNT W/DIF F mean red cell hemoglobin 34.1 pg 27.0-3 3.0 high Not Available [facility] (Lab) [address] [place], [address], 02/25/2022 13:20:41 02/26/20 22 02/25/2022 CBC/C OMPLE TE BLD COUNT W/DIF F mean RBC HGB concentratio n 33.6 g/dL 31.0-3 6.0 Not Available [facility] (Lab) [address] [place], [address], 02/25/2022 13:20:41 02/26/20 22 02/25/2022 CBC/C OMPLE TE BLD COUNT W/DIF F red cell distribution width 11.5 % 11.8-1 5.5 low Not Available [facility] (Lab) [address] [place], [address], 02/25/2022 13:20:41 02/26/20 22 02/25/2022 CBC/C OMPLE TE BLD COUNT W/DIF F platelets 213 x10'3 /uL 150-40 0 Not Available [facility] (Lab) [address] [place], [address], 02/25/2022 13:20:41 02/26/20 22 02/25/2022 CBC/C OMPLE TE BLD COUNT W/DIF F mean platelet volume 11.2 fL 9.0-12 .4 Not Available [facility] (Lab) [address] [place], [address], 02/25/2022 13:20:41 02/26/20 22 02/25/2022 CBC/C OMPLE TE BLD COUNT W/DIF F neutrophils 41.1 % 39.0-7 2.0 Not Available [facility] (Lab) [address] [place], [address], 02/25/2022 13:20:41 02/26/20 22 02/25/2022 CBC/C OMPLE TE BLD COUNT W/DIF F lymphocytes 50.7 % 16.0-4 7.0 high Not Available [facility] (Lab) [address] [place], [address], 02/25/2022 13:20:41 02/26/20 22 02/25/2022 CBC/C OMPLE TE BLD COUNT W/DIF F monocytes 6.7 % 5.0-12 .0 Not Available [facility] (Lab) [address] [place], [address], 02/25/2022 13:20:41 02/26/20 22 02/25/2022 CBC/C OMPLE TE BLD COUNT W/DIF F eosinophils 0.9 % 1.0-7. 0 low Not Available [facility] (Lab) [address] [place], [address], 02/25/2022 13:20:41 02/26/20 22 02/25/2022 CBC/C OMPLE TE BLD COUNT W/DIF F basophils 0.6 % 0.0-2. 0 Not Available [facility] (Lab) [address] [place], [address], 02/25/2022 13:20:41 02/26/20 22 02/25/2022 CBC/C OMPLE TE BLD COUNT W/DIF F immature granulocytes 0.0 % 0.00-0 .50 Not Available [facility] (Lab) [address] [place], [address], 02/25/2022 13:20:41 02/26/20 22 02/25/2022 CBC/C OMPLE TE BLD COUNT W/DIF F neutrophils, absolute count 1.42 x10'3 /uL 1.5-8. 0 low Not Available [facility] (Lab) [address] [place], [address], 02/25/2022 13:20:41 02/26/20 22 02/25/2022 CBC/C OMPLE TE BLD COUNT W/DIF F lymphocytes, absolute count 1.75 x10'3 /uL 1.07-3 .43 Not Available [facility] (Lab) [address] [place], [address], 02/25/2022 13:20:41 02/26/20 22 02/25/2022 CBC/C OMPLE TE BLD COUNT W/DIF F monocytes, absolute count 0.23 x10'3 /uL 0.29-0 .99 low Not Available [facility] (Lab) [address] [place], [address], 02/25/2022 13:20:41 02/26/20 22 02/25/2022 CBC/C OMPLE TE BLD COUNT W/DIF F eosinophils, absolute count 0.03 x10'3 /uL 0.02-0 .53 Not Available [facility] (Lab) [address] [place], [address], 02/25/2022 13:20:41 02/26/20 22 02/25/2022 CBC/C OMPLE TE BLD COUNT W/DIF F basophils, absolute count 0.02 x10'3 /uL 0.01-0 .08 Not Available [facility] (Lab) [address] [place], [address], 02/25/2022 13:20:41 02/26/20 22 02/25/2022 CBC/C OMPLE TE BLD COUNT W/DIF F immature granulocytes ,absolute 0.00 x10'3 /uL 0.00-0 .05 Not Available [facility] (Lab) [address] [place], [address], 02/25/2022 13:20:41 02/26/20 22 02/25/2022 CBC/C OMPLE TE BLD COUNT W/DIF F nucleated red blood cells 0.0 % -0 Not Available [facility] (Lab) [address] [place], [address], 02/25/2022 13:20:41 02/26/20 22 02/25/2022 CBC/C OMPLE TE BLD COUNT W/DIF F NRBC# 0.00 x10'3 /uL Not Available [facility] (Lab) [address] [place], [address], 02/25/2022 13:20:41 02/26/20 22 02/25/2022 COMPR EHENS YUDITH METAB OLIC PANEL carbon dioxide 28 mmol/ L 22-30 Not Available [facility] (Lab) [address] [place], [address], 02/25/2022 13:14:01 02/26/20 22 02/25/2022 COMPR EHENS YUDITH METAB OLIC PANEL sodium 142 mmol/ L 137-14 5 Not Available [facility] (Lab) [address] [place], [address], 02/25/2022 13:14:01 02/26/20 22 02/25/2022 COMPR EHENS YUDITH METAB OLIC PANEL potassium 3.9 mmol/ L 3.5-5. 1 Not Available [facility] (Lab) [address] [place], [address], 02/25/2022 13:14:01 02/26/20 22 02/25/2022 COMPR EHENS YUDITH METAB OLIC PANEL chloride 105 mmol/ L 98-107 Not Available [facility] (Lab) [address] [place], [address], 02/25/2022 13:14:01 02/26/20 22 02/25/2022 COMPR EHENS YUDITH METAB OLIC PANEL anion gap 12.9 mmol/ L 14-22 low Not Available [facility] (Lab) [address] [place], [address], 02/25/2022 13:14:01 02/26/20 22 02/25/2022 COMPR EHENS YUDITH METAB OLIC PANEL glucose 85 mg/dL 70-99 Not Available [facility] (Lab) [address] [place], [address], 02/25/2022 13:14:01 02/26/20 22 02/25/2022 COMPR EHENS YUDITH METAB OLIC PANEL BUN 14 mg/dL 8-19 Not Available [facility] (Lab) [address] [place], [address], 02/25/2022 13:14:01 02/26/20 22 02/25/2022 COMPR EHENS YUDITH METAB OLIC PANEL creatinine 0.69 mg/dL 0.66-1 .25 Not Available [facility] (Lab) [address] [place], [address], 02/25/2022 13:14:01 02/26/20 22 02/25/2022 COMPR EHENS YUDITH METAB OLIC PANEL GFR >60 Refer ence Range : [place] GFR Healt hy Adult : >60 mL/mi n/1.7 3 m2 Chron ic Kidne y Disea se: 15-60 mL/mi n/1.7 3 m2 Kidne y Failu re: <15/m L/min /1.73 m2 www.n iddk. nih.g ov The MDRD study equat ion has not been valid ated in child stalin <18 years of age; pregn ant women ; the elder ly >85 years of age; or in some racia l or ethni c subgr oups, such as Hisnh nics. Outsi de the valid ated maykel eters , estim ated GFR is less accur ate, requi ring clini snatosh judgm ent on a case- by-ca se basis . Clini santosh inter preta tion for other races and ages must be made by the clini manolo. The MDRD study equat ion has not been valid ated for the evalu ation of serum creat inine relat ed to nutri jonathan l statu s or medic ation usage . For perso ns <18 years of age, a pedia tric GFR calcu lator is avail able on the [facility] websi te: https ://abby queen.mere rg/pr surendraess ional s/kdo qi/gf r_cal culat or Not Available [facility] (Lab) [address] [place], [address], 02/25/2022 13:14:01 02/26/20 22 02/25/2022 COMPR EHENS YUDITH METAB OLIC PANEL alkaline phosphatase 68 U/L 38-126 Not Available [facility] (Lab) [address] [place], [address], 02/25/2022 13:14:01 02/26/20 22 02/25/2022 COMPR EHENS YUDITH METAB OLIC PANEL calcium 9.1 mg/dL 8.4-10 .2 Not Available [facility] (Lab) [address] [place], [address], 02/25/2022 13:14:01 02/26/20 22 02/25/2022 COMPR EHENS YUDITH METAB OLIC PANEL alanine aminotransfe rase 23 U/L 0-35 Not Available [facility] (Lab) [address] [place], [address], 02/25/2022 13:14:01 02/26/2002/25/2022 COMPR EHENS YUDITH METAB OLIC PANEL aspartate aminotransfe rase 28 U/L 15-37 Not Available [facility] (Lab) [address] [place], [address], 02/25/2022 13:14:01 02/26/2002/25/2022 COMPR EHENS YUDITH METAB OLIC PANEL bilirubin, total 0.60 mg/dL 0.20-1 .30 Not Available [facility] (Lab) [address] [place], [address], 02/25/2022 13:14:01 02/26/20 22 02/25/2022 COMPR EHENS YUDITH METAB OLIC PANEL total protein 6.8 g/dL 6.3-8. 2 Not Available [facility] (Lab) [address] [place], [address], 02/25/2022 13:14:01 02/26/20 22 02/25/2022 COMPR EHENS YUDITH METAB OLIC PANEL albumin 4.5 g/dL 3.0-4. 4 high Not Available [facility] (Lab) [address] [place], [address], 02/25/2022 13:14:01 02/26/20 22 02/25/2022 COMPR EHENS YUDITH METAB OLIC PANEL globulin 2.3 g/dL 2.6-4. 2 low Not Available [facility] (Lab) [address] [place], [address], 02/25/2022 13:14:01 02/26/20 22 02/25/2022 COMPR EHENS YUDITH METAB OLIC PANEL A/G ratio 2.0 ratio 1.0-2. 0 Not Available [facility] (Lab) [address] [place], [address], 02/25/2022 13:14:01 02/26/2002/25/2022 LIPID PANEL LDL cholesterol, calculated 73 mg/dL 0-130 NIH VIVIANA NSUS REPOR T RECOM MENDA TIONS FOR LDL: ADULT CHILD LOW RISK <130 <110 (OPTI MAL LDL) <100 ----- BORDE RLINE : 130-1 59 ----- HIGH RISK: >160 >130 A TRIGL YCERI DE RESUL T >400 INVAL IDATE S THE CALCU LATIO N FOR LDL FRACT IONAT ION - THE LDL RESUL T WILL NOT BE REPOR CAROLINE. Not Available [facility] (Lab) [address] [place], [address], 02/25/2022 13:13:54 02/26/20 22 02/25/2022 LIPID PANEL cholesterol 150 mg/dL 140-19 9 NIH VIVIANA NSUS RECOM MENDA TION FOR JORGE STERO L: ADULT CHILD LOW RISK: <200 <170 BORDE RLINE : <200- 239 ----- HIGH RISK: >240 >200 Not Available [facility] (Lab) [address] [place], [address], 02/25/2022 13:13:54 02/26/20 22 02/25/2022 LIPID PANEL triglyceride s 146 mg/dL 0-150 NIH VIVIANA NSUS REPOR T RECOM MENDA TION FOR TRIGL YCERI SAPPHIRE: ADULT CHILD LOW RISK: <150 ----- BODER LINE: 150-1 99 ----- HIGH RISK: >200 ----- Not Available [facility] (Lab) [address] [place], [address], 02/25/2022 13:13:54 02/26/20 22 02/25/2022 LIPID PANEL HDL cholesterol 48 mg/dL 40- Not Available [facility] (Lab) [address] [place], [address], 02/25/2022 13:13:54 03/17/19 24 03/17/2023 CBC/C OMPLE TE BLD COUNT W/DIF F white blood cells 4.2 x10'3 /uL 4.2-10 .8 Not Available [facility] (Lab) [address] [place], [address], 03/17/2023 12:58:18 03/17/19 24 03/17/2023 CBC/C OMPLE TE BLD COUNT W/DIF F red blood cells 4.35 x10'6 /uL 3.80-5 .20 Not Available [facility] (Lab) [address] [place], [address], 03/17/2023 12:58:18 03/17/19 24 03/17/2023 CBC/C OMPLE TE BLD COUNT W/DIF F hemoglobin 15.3 g/dL 12.0-1 5.6 Not Available [facility] (Lab) [address] [place], [address], 03/17/2023 12:58:18 03/17/19 24 03/17/2023 CBC/C OMPLE TE BLD COUNT W/DIF F hematocrit 45.0 % 35.7-4 5.7 Not Available [facility] (Lab) [address] [place], [address], 03/17/2023 12:58:18 03/17/19 24 03/17/2023 CBC/C OMPLE TE BLD COUNT W/DIF F mean red cell volume 103.4 fL 82.0-9 9.0 high Not Available [facility] (Lab) [address] [place], [address], 03/17/2023 12:58:18 03/17/19 24 03/17/2023 CBC/C OMPLE TE BLD COUNT W/DIF F mean red cell hemoglobin 35.2 pg 27.0-3 3.0 high Not Available [facility] (Lab) [address] [place], [address], 03/17/2023 12:58:18 03/17/19 24 03/17/2023 CBC/C OMPLE TE BLD COUNT W/DIF F mean RBC HGB concentratio n 34.0 g/dL 31.0-3 6.0 Not Available [facility] (Lab) [address] [place], [address], 03/17/2023 12:58:18 03/17/19 24 03/17/2023 CBC/C OMPLE TE BLD COUNT W/DIF F red cell distribution width 11.7 % 11.8-1 5.5 low Not Available [facility] (Lab) [address] [place], [address], 03/17/2023 12:58:18 03/17/19 24 03/17/2023 CBC/C OMPLE TE BLD COUNT W/DIF F platelets 212 x10'3 /uL 150-40 0 Not Available [facility] (Lab) [address] [place], [address], 03/17/2023 12:58:18 03/17/19 24 03/17/2023 CBC/C OMPLE TE BLD COUNT W/DIF F mean platelet volume 10.4 fL 9.0-12 .4 Not Available [facility] (Lab) [address] [place], [address], 03/17/2023 12:58:18 03/17/19 24 03/17/2023 CBC/C OMPLE TE BLD COUNT W/DIF F neutrophils 43.2 % 39.0-7 2.0 Not Available [facility] (Lab) [address] [place], [address], 03/17/2023 12:58:18 03/17/19 24 03/17/2023 CBC/C OMPLE TE BLD COUNT W/DIF F lymphocytes 47.0 % 16.0-4 7.0 Not Available [facility] (Lab) [address] [place], [address], 03/17/2023 12:58:18 03/17/19 24 03/17/2023 CBC/C OMPLE TE BLD COUNT W/DIF F monocytes 8.1 % 5.0-12 .0 Not Available [facility] (Lab) [address] [place], [address], 03/17/2023 12:58:18 03/17/19 24 03/17/2023 CBC/C OMPLE TE BLD COUNT W/DIF F eosinophils 1.0 % 1.0-7. 0 Not Available [facility] (Lab) [address] [place], [address], 03/17/2023 12:58:18 03/17/19 24 03/17/2023 CBC/C OMPLE TE BLD COUNT W/DIF F basophils 0.5 % 0.0-2. 0 Not Available [facility] (Lab) [address] [place], [address], 03/17/2023 12:58:18 03/17/19 24 03/17/2023 CBC/C OMPLE TE BLD COUNT W/DIF F immature granulocytes 0.2 % 0.00-0 .50 Not Available [facility] (Lab) [address] [place], [address], 03/17/2023 12:58:18 03/17/19 24 03/17/2023 CBC/C OMPLE TE BLD COUNT W/DIF F neutrophils, absolute count 1.82 x10'3 /uL 1.5-8. 0 Not Available [facility] (Lab) [address] [place], [address], 03/17/2023 12:58:18 03/17/19 24 03/17/2023 CBC/C OMPLE TE BLD COUNT W/DIF F lymphocytes, absolute count 1.98 x10'3 /uL 1.07-3 .43 Not Available [facility] (Lab) [address] [place], [address], 03/17/2023 12:58:18 03/17/19 24 03/17/2023 CBC/C OMPLE TE BLD COUNT W/DIF F monocytes, absolute count 0.34 x10'3 /uL 0.29-0 .99 Not Available [facility] (Lab) [address] [place], [address], 03/17/2023 12:58:18 03/17/19 24 03/17/2023 CBC/C OMPLE TE BLD COUNT W/DIF F eosinophils, absolute count 0.04 x10'3 /uL 0.02-0 .53 Not Available [facility] (Lab) [address] [place], [address], 03/17/2023 12:58:18 03/17/19 24 03/17/2023 CBC/C OMPLE TE BLD COUNT W/DIF F basophils, absolute count 0.02 x10'3 /uL 0.01-0 .08 Not Available [facility] (Lab) [address] [place], [address], 03/17/2023 12:58:18 03/17/19 24 03/17/2023 CBC/C OMPLE TE BLD COUNT W/DIF F immature granulocytes ,absolute 0.01 x10'3 /uL 0.00-0 .05 Not Available [facility] (Lab) [address] [place], [address], 03/17/2023 12:58:18 03/17/19 24 03/17/2023 CBC/C OMPLE TE BLD COUNT W/DIF F nucleated red blood cells 0.0 % -0 Not Available [facility] (Lab) [address] [place], [address], 03/17/2023 12:58:18 03/17/19 24 03/17/2023 CBC/C OMPLE TE BLD COUNT W/DIF F NRBC# 0.00 x10'3 /uL Not Available [facility] (Lab) [address] [place], [address], 03/17/2023 12:58:18 03/17/19 24 03/17/2023 LIPID PANEL cholesterol 181 mg/dL 140-19 9 NIH VIVIANA NSUS RECOM MENDA TION FOR JORGE STERO L: ADULT CHILD LOW RISK: <200 <170 BORDE RLINE : <200- 239 ----- HIGH RISK: >240 >200 Not Available [facility] (Lab) [address] [place], [address], 03/17/2023 13:18:42 03/17/1903/17/2023 LIPID PANEL triglyceride s 105 mg/dL 0-150 NIH VIVIANA NSUS REPOR T RECOM MENDA TION FOR TRIGL YCERI SAPPHIRE: ADULT CHILD LOW RISK: <150 ----- BODER LINE: 150-1 99 ----- HIGH RISK: >200 ----- Not Available [facility] (Lab) [address] [place], [address], 03/17/2023 13:18:42 03/17/1903/17/2023 LIPID PANEL HDL cholesterol 57 mg/dL 40- Not Available [facility] (Lab) [address] [place], [address], 03/17/2023 13:18:42 03/17/19 24 03/17/2023 LIPID PANEL LDL cholesterol, calculated 103 mg/dL 0-130 [facility] V[facility] NSUS REPOR T RECOM MENDA TIONS FOR LDL: ADULT CHILD LOW RISK <130 <110 (OPTI MAL LDL) <100 ----- BORDE RLINE : 130-1 59 ----- HIGH RISK: >160 >130 A TRIGL YCERI DE RESUL T >400 INVAL IDATE S THE CALCU LATIO N FOR LDL FRACT IONAT ION - THE LDL RESUL T WILL NOT BE REPOR CAROLINE. Not Available [facility] (Lab) [address] [place], [address], 03/17/2023 13:18:42 03/17/19 24 03/17/2023 COMPR EHENS YUDITH METAB OLIC PANEL sodium 140 mmol/ L 137-14 5 Not Available [facility] (Lab) [address] [place], [address], 03/17/2023 13:18:48 03/17/19 24 03/17/2023 COMPR EHENS YUDITH METAB OLIC PANEL potassium 3.7 mmol/ L 3.5-5. 1 Not Available [facility] (Lab) [address] [place], [address], 03/17/2023 13:18:48 03/17/19 24 03/17/2023 COMPR EHENS YUDITH METAB OLIC PANEL chloride 106 mmol/ L 98-107 Not Available [facility] (Lab) [address] [place], [address], 03/17/2023 13:18:48 03/17/19 24 03/17/2023 COMPR EHENS YUDITH METAB OLIC PANEL carbon dioxide 26 mmol/ L 22-30 Not Available [facility] (Lab) [address] [place], [address], 03/17/2023 13:18:48 03/17/19 24 03/17/2023 COMPR EHENS YUDITH METAB OLIC PANEL anion gap 11.7 mmol/ L 14-22 low Not Available [facility] (Lab) [address] [place], [address], 03/17/2023 13:18:48 03/17/19 24 03/17/2023 COMPR EHENS YUDITH METAB OLIC PANEL glucose 84 mg/dL 70-99 Not Available [facility] (Lab) [address] [place], [address], 03/17/2023 13:18:48 03/17/19 24 03/17/2023 COMPR EHENS YUDITH METAB OLIC PANEL BUN 15 mg/dL 8-19 Not Available [facility] (Lab) [address] [place], [address], 03/17/2023 13:18:48 03/17/19 24 03/17/2023 COMPR EHENS YUDITH METAB OLIC PANEL creatinine 0.66 mg/dL 0.66-1 .25 Not Available [facility] (Lab) [address] [place], [address], 03/17/2023 13:18:48 03/17/19 24 03/17/2023 COMPR EHENS YUDITH METAB OLIC PANEL GFR >60 Refer ence Range : [place] GFR Healt hy Adult : >60 mL/mi n/1.7 3 m2 Chron ic Kidne y Disea se: 15-60 mL/mi n/1.7 3 m2 Kidne y Failu re: <15/m L/min /1.73 m2 www.n iddk. nih.g ov The MDRD study equat ion has not been valid ated in child stalin <18 years of age; pregn ant women ; the elder ly >85 years of age; or in some racia l or ethni c subgr oups, such as Hispa nics. Outsi de the valid ated maykel eters , estim ated GFR is less accur ate, requi ring clini santosh judgm ent on a case- by-ca se basis . Clini santosh inter preta tion for other races and ages must be made by the clini manolo. The MDRD study equat ion has not been valid ated for the evalu ation of serum creat inine relat ed to nutri jonathan l statu s or medic ation usage . For perso ns <18 years of age, a pedia tric GFR calcu lator is avail able on the [facility] websi te: https ://abby queen.mere perez/pr ofess ional s/kdo qi/gf r_cal culat or Not Available [facility] (Lab) [address] [place], [address], 03/17/2023 13:18:48 03/17/19 24 03/17/2023 COMPR EHENS YUDITH METAB OLIC PANEL alkaline phosphatase 61 U/L 38-126 Not Available [facility] (Lab) [address] [place], [address], 03/17/2023 13:18:48 03/17/19 24 03/17/2023 COMPR EHENS YUDITH METAB OLIC PANEL alanine aminotransfe rase 26 U/L 0-35 Not Available [facility] (Lab) [address] [place], [address], 03/17/2023 13:18:48 03/17/19 24 03/17/2023 COMPR EHENS YUDITH METAB OLIC PANEL aspartate aminotransfe rase 30 U/L 15-37 Not Available [facility] (Lab) [address] [place], [address], 03/17/2023 13:18:48 03/17/19 24 03/17/2023 COMPR EHENS YUDITH METAB OLIC PANEL bilirubin, total 0.60 mg/dL 0.20-1 .30 Not Available [facility] (Lab) [address] [place], [address], 03/17/2023 13:18:48 03/17/19 24 03/17/2023 COMPR EHENS YUDITH METAB OLIC PANEL calcium 9.3 mg/dL 8.4-10 .2 Not Available [facility] (Lab) [address] [place], [address], 03/17/2023 13:18:48 03/17/19 24 03/17/2023 COMPR EHENS YUDITH METAB OLIC PANEL total protein 6.8 g/dL 6.3-8. 2 Not Available [facility] (Lab) [address] [place], [address], 03/17/2023 13:18:48 03/17/19 24 03/17/2023 COMPR EHENS YUDITH METAB OLIC PANEL albumin 4.4 g/dL 3.0-4. 4 Not Available [facility] (Lab) [address] [place], [address], 03/17/2023 13:18:48 03/17/19 24 03/17/2023 COMPR EHENS YUDITH METAB OLIC PANEL globulin 2.4 g/dL 2.6-4. 2 low Not Available [facility] (Lab) [address] [place], [address], 03/17/2023 13:18:48 03/17/19 24 03/17/2023 COMPR EHENS YUDITH METAB OLIC PANEL A/G ratio 1.8 ratio 1.0-2. 0 Not Available [facility] (Lab) [address] [place], [address], 03/17/2023 13:18:48 03/17/19 24 03/17/2023 T4 FREE free T4 0.97 NG/dL 0.78-2 .19 Not Available [facility] (Lab) [address] [place], [address], 03/17/2023 13:32:10 03/17/19 24 03/17/2023 VITAM IN D 25-HY DROXY [id number] 36.4 NG/mL 30-100 Vitam in D Statu s: Defic ient: <20 ng/mL Insuf ficie nt: 20-29 ng/mL Suffi cient : 30-10 0 ng/mL Not Available [facility] (Lab) [address] [place], [address], 03/17/2023 13:32:16 03/17/19 24 03/17/2023 TSH thyroid-stim ulating hormone 1.830 uIU/m L 0.465- 4.680 Not Available [facility] (Lab) [address] [place], [address], 03/17/2023 13:43:13 03/07/20 24 03/08/2024 LIPID PANEL , STAND AILEEN cholesterol, total 159 mg/dL <200 normal Not Available [address], [address], 03/08/2024 03:14:36 03/07/20 24 03/08/2024 LIPID PANEL , STAND AILEEN HDL cholesterol 55 mg/dL > or = 50 normal Not Available [address], [address], 03/08/2024 03:14:36 03/07/20 24 03/08/2024 LIPID PANEL , STAND AILEEN triglyceride s 71 mg/dL <150 normal Not Available [address], [address], 03/08/2024 03:14:36 03/07/20 24 03/08/2024 LIPID PANEL , STAND AILEEN LDL-choleste rol 88 mg/dL _(santosh c) normal Refer ence range : <100 Tyson able range <100 mg/dL for prima ry preve ntion ; <70 mg/dL for patie nts with CHD or diabe tic patie nts with > or = 2 CHD risk facto rs. LDL-C is now calcu lated using the Urvashi n-Hop kins calcu alicja n, which is a valid ated novel metho d marilia bruno acy than the Fried helene equat ion in the estim ation of LDL-C . Urvashi boyer SS et al. MACRINA. 2013; 310(1 9): 2061- 2068 (http ://ed ucati on.Alejandro sun PNP The[employer]. com/f aq/FA Q164) Not Available [address] [address] [place], [address], 03/08/2024 03:14:36 03/07/20 24 03/08/2024 LIPID PANEL , STAND AILEEN chol/HDLC ratio 2.9 (calc ) <5.0 normal Not Available [address], [address], 03/08/2024 03:14:36 03/07/20 24 03/08/2024 LIPID PANEL , STAND AILEEN non HDL cholesterol 104 mg/dL _(santosh c) <130 normal For patie nts with diabe jose luis plus 1 major ASCVD risk facto r, treat ing to a non-H DL-C goal of <100 mg/dL (LDL- C of <70 mg/dL ) is consi dered a thera pecesar c optio n. Not Available [address], [address], 03/08/2024 03:14:36 03/07/20 24 03/08/2024 COMPR EHENS YUDITH METAB OLIC PANEL glucose 91 mg/dL 65-99 normal Fasti ng refer ence inter sola Not Available [address], [address], 03/08/2024 03:14:38 03/07/20 24 03/08/2024 COMPR EHENS YUDITH METAB OLIC PANEL urea nitrogen (BUN) 18 mg/dL 7-25 normal Not Available [address], [address], 03/08/2024 03:14:38 03/07/20 24 03/08/2024 COMPR EHENS YUDITH METAB OLIC PANEL creatinine 0.76 mg/dL 0.60-1 .00 normal Not Available [address], [address], 03/08/2024 03:14:38 03/07/20 24 03/08/2024 COMPR EHENS YUDITH METAB OLIC PANEL eGFR 81 mL/mi n/1.7 3m2 > or = 60 normal Not Available [address], [address], 03/08/2024 03:14:38 03/07/20 24 03/08/2024 COMPR EHENS YUDITH METAB OLIC PANEL BUN/creatini ne ratio SEE NOTE: (calc ) 6-22 Not Repor caroline: BUN and Creat inine are withi n refer ence range . Not Available [address], [address], 03/08/2024 03:14:38 03/07/20 24 03/08/2024 COMPR EHENS YUDITH METAB OLIC PANEL sodium 141 mmol/ L 135-14 6 normal Not Available [address], [address], 03/08/2024 03:14:38 03/07/20 24 03/08/2024 COMPR EHENS YUDITH METAB OLIC PANEL potassium 3.8 mmol/ L 3.5-5. 3 normal Not Available [address], [address], 03/08/2024 03:14:38 03/07/20 24 03/08/2024 COMPR EHENS YUDITH METAB OLIC PANEL chloride 106 mmol/ L 98-110 normal Not Available [address], [address], 03/08/2024 03:14:38 03/07/20 24 03/08/2024 COMPR EHENS YUDITH METAB OLIC PANEL carbon dioxide 28 mmol/ L 20-32 normal Not Available [address], [address], 03/08/2024 03:14:38 03/07/20 24 03/08/2024 COMPR EHENS YUDITH METAB OLIC PANEL calcium 8.6 mg/dL 8.6-10 .4 normal Not Available [address], [address], 03/08/2024 03:14:38 03/07/20 24 03/08/2024 COMPR EHENS YUDITH METAB OLIC PANEL protein, total 6.3 g/dL 6.1-8. 1 normal Not Available [address], [address], 03/08/2024 03:14:38 03/07/20 24 03/08/2024 COMPR EHENS YUDITH METAB OLIC PANEL albumin 4.4 g/dL 3.6-5. 1 normal Not Available [address], [address], 03/08/2024 03:14:38 03/07/20 24 03/08/2024 COMPR EHENS YUDITH METAB OLIC PANEL globulin 1.9 g/dL_ (calc ) 1.9-3. 7 normal Not Available [address], [address], 03/08/2024 03:14:38 03/07/20 24 03/08/2024 COMPR EHENS YUDITH METAB OLIC PANEL albumin/glob ulin ratio 2.3 (calc ) 1.0-2. 5 normal Not Available [address], [address], 03/08/2024 03:14:38 03/07/20 24 03/08/2024 COMPR EHENS YUDITH METAB OLIC PANEL bilirubin, total 0.4 mg/dL 0.2-1. 2 normal Not Available [address], [address], 03/08/2024 03:14:38 03/07/20 24 03/08/2024 COMPR EHENS YUDITH METAB OLIC PANEL alkaline phosphatase 53 U/L 37-153 normal Not Available [address] [address] [place], [address], 03/08/2024 03:14:38 03/07/20 24 03/08/2024 COMPR EHENS YUDITH METAB OLIC PANEL AST 17 U/L 10-35 normal Not Available [address] [address] [place], [address], 03/08/2024 03:14:38 03/07/20 24 03/08/2024 COMPR EHENS YUDITH METAB OLIC PANEL ALT 16 U/L 6-29 normal Not Available [address], [address], 03/08/2024 03:14:38 03/07/20 24 03/08/2024 CBC (INCL UDES DIFF/ PLT) white blood cell count 4.3 thous and/u L 3.8-10 .8 normal Not Available [address], [address], 03/08/2024 03:14:39 03/07/20 24 03/08/2024 CBC (INCL UDES DIFF/ PLT) red blood cell count 4.52 taz on/uL 3.80-5 .10 normal Not Available [address], [address], 03/08/2024 03:14:39 03/07/20 24 03/08/2024 CBC (INCL UDES DIFF/ PLT) hemoglobin 15.0 g/dL 11.7-1 5.5 normal Not Available [address], [address], 03/08/2024 03:14:39 03/07/20 24 03/08/2024 CBC (INCL UDES DIFF/ PLT) hematocrit 45.9 % 35.0-4 5.0 high Not Available [address], [address], 03/08/2024 03:14:39 03/07/20 24 03/08/2024 CBC (INCL UDES DIFF/ PLT) MCV 101.5 fL 80.0-1 00.0 high Not Available [address], [address], 03/08/2024 03:14:39 03/07/20 24 03/08/2024 CBC (INCL UDES DIFF/ PLT) MCH 33.2 pg 27.0-3 3.0 high Not Available [address], [address], 03/08/2024 03:14:39 03/07/2003/08/2024 CBC (INCL UDES DIFF/ PLT) MCHC 32.7 g/dL 32.0-3 6.0 normal For adult s, a sligh t decre ase in the calcu lated MCHC value (in the range of 30 to 32 g/dL) is most likel y not clini louise signi fican t; benedict er, it shoul d be inter prete d with cauti on in corre latio n with other red cell maykel eters and the patie nt's clini santosh condi tion. Not Available [address], [address], 03/08/2024 03:14:39 03/07/20 24 03/08/2024 CBC (INCL UDES DIFF/ PLT) RDW 11.7 % 11.0-1 5.0 normal Not Available [address], [address], 03/08/2024 03:14:39 03/07/20 24 03/08/2024 CBC (INCL UDES DIFF/ PLT) platelet count 216 thous and/u L 140-40 0 normal Not Available [address], [address], 03/08/2024 03:14:39 03/07/20 24 03/08/2024 CBC (INCL UDES DIFF/ PLT) MPV 10.7 fL 7.5-12 .5 normal Not Available [address], [address], 03/08/2024 03:14:39 03/07/20 24 03/08/2024 CBC (INCL UDES DIFF/ PLT) absolute neutrophils 2387 cells /uL 1500-7 800 normal Not Available [address], [address], 03/08/2024 03:14:39 03/07/20 24 03/08/2024 CBC (INCL UDES DIFF/ PLT) absolute lymphocytes 1535 cells /uL 850-39 00 normal Not Available [address], [address], 03/08/2024 03:14:39 03/07/20 24 03/08/2024 CBC (INCL UDES DIFF/ PLT) absolute monocytes 258 cells /uL 200-95 0 normal Not Available [address], [address], 03/08/2024 03:14:39 03/07/20 24 03/08/2024 CBC (INCL UDES DIFF/ PLT) absolute eosinophils 99 cells /uL 15-500 normal Not Available [address], [address], 03/08/2024 03:14:39 03/07/20 24 03/08/2024 CBC (INCL UDES DIFF/ PLT) absolute basophils 22 cells /uL 0-200 normal Not Available [address], [address], 03/08/2024 03:14:39 03/07/20 24 03/08/2024 CBC (INCL UDES DIFF/ PLT) neutrophils 55.5 % normal Not Available [address], [address], 03/08/2024 03:14:39 03/07/20 03/08/2024 CBC (INCL UDES DIFF/ PLT) lymphocytes 35.7 % normal Not Available [address], [address], 03/08/2024 03:14:39 03/07/20 24 03/08/2024 CBC (INCL UDES DIFF/ PLT) monocytes 6.0 % normal Not Available [address], [address], 03/08/2024 03:14:39 03/07/20 24 03/08/2024 CBC (INCL UDES DIFF/ PLT) eosinophils 2.3 % normal Not Available [address], [address], 03/08/2024 03:14:39 03/07/20 24 03/08/2024 CBC (INCL UDES DIFF/ PLT) basophils 0.5 % normal Not Available [address], [address], 03/08/2024 03:14:39 03/07/20 24 03/08/2024 T4, FREE T4, free 1.1 NG/dL 0.8-1. 8 normal Not Available [address], [address], 03/08/2024 03:14:40 03/07/20 24 03/08/2024 TSH TSH 1.04 mIU/L 0.40-4 .50 normal Not Available [address], [address], 03/08/2024 03:14:41 03/07/20 24 03/08/2024 VITAM IN D,25- OH,TO NILAM,I A vitamin D,25-oh,tota l,ia 30 NG/mL 30-100 normal Vitam in D Statu s 25-OH Vitam in D: Defic iency : <20 ng/mL Insuf ficie ncy: 20 - 29 ng/mL Optim al: > or = 30 ng/mL For 25-OH Vitam in D testi ng on patie nts on D2-tsang pplem entat ion and patie nts for whom quant itati on of D2 and D3 fract ions is requi red, the [employer] Assur eD(TM ) 25-OH VIT D, (D2,D 3), LC/MS /MS is recom libia d: order code 40824 ([place] ents >2yrs ). See Note 1 Note 1 For addit ional infor kiara segovia refer to http: //[facility] kaylin Tejeda stDia gnost ics.c om/fa q/FAQ 199 (This link is being provi ded for infor teddy garg/ carline vanegaso ses only. ) Not Available [facility] [address] [place], [address], 03/08/2024 03:14:42 Result Notes None recorded. Problems Name Problem SNOMED Code Status Onset Date Resolution Date Notes Provider Name and Address Organization Details Recorded Time Stress fracture of metatarsal bone of left foot 5476148011127 9108 Active 2019 Not Available [facility] 3 18:45:42 Pain of right shoulder joint 0573864390659 9100 Active 2021 Not Available [facility] 3 18:45:42 Dry skin 96694037 Active 2020 Not Available [facility] 3 18:45:42 Martins's neuroma of left foot 2357174131845 05 Active 2019 Not Available [facility] 3 18:45:42 Renal mass 205831084 Active 2020 Not Available [facility] 3 18:45:42 Pain in left foot 5039369628197 07 Active 2021 Not Available [facility] 3 18:45:42 Pain of left hip joint 6642542918222 00 Active 2021 Not Available [facility] 3 18:45:42 Pain in right hip joint 2212047467856 02 Active 2021 Not Available [facility] 3 18:45:42 Vitamin D deficiency 86790342 Active 2021 Not Available [facility] 3 18:45:42 Ingrowing toenail 239237261 Active 2020 Not Available [facility] 3 18:45:42 Osteoporos is 17515815 Active 2018 Not Available [facility] 3 18:45:42 COVID-19 891668893 Active 2021 Not Available [facility] 3 18:45:42 Fatigue 40520411 Active 2021 Not Available [facility] 3 18:45:42 Ankle pain 784835919 Active 2022 Oly Medina MA [facility], [place] [facility] [employer] [facility] 3 14:32:17 Gastroesop hageal reflux disease 896000249 Active 2023 Alan Duarte MD [address], [place], [address] , [email or web address] [facility] 4 10:53:42 Acute bronchitis 15036073 Active 2024 Alan Duarte MD [address], [place], [address] , [employer] [facility] [employer] [facility] 5 12:23:59 Acute left otitis media 957224390 Active 2024 Alan Duarte MD [address], [place], [address] , [email or web address] [facility] 5 11:14:41 Problem Notes None recorded. Procedures Surgical History Date Name Laterality Status Provider Name and Address Organization Details Recorded Time 02/23/20 24 Medicare Wellness CPT Code, subsequent completed Joy Bliss RN [facility] [employer] [facility] 02/23/2024 10:42:27 02/21/20 23 Medicare Wellness CPT Code, subsequent completed Joy Bliss RN [facility] [employer] [facility] 02/20/2023 11:02:18 Tonsillectomy completed Not Available [facility] 05/14/2022 00:45:12 excision completed Not Available [facility] 00:45:12 completed Not Available [facility] 0 05/14/2022 00:45:12 Imaging Results None recorded. Procedure Notes None recorded. Medical Equipment None Reported. Allergies Allergen ID Allergen Name Allergen Category Reaction Reaction Severity Criticality Documentation Date Start Date Code Code System Note Provider Name and Address Organization Details Recorded Time 740 nickel environme nt Not available Not available Not available 05/14/2022 77648 29 RxNorm Not Available [facility] 3 00:54:39 742 Aldara medicatio n Not available Not available Not available 05/14/2022 52065 5 RxNorm Not Available [facility] 3 00:54:39 Medications Name Sig Start Date Stop Date Status Note LastModified by Organization Details LastModified Time amoxicillin 500 mg capsule TAKE 1 CAPSULE BY MOUTH EVERY 8 HOURS active Not Available Not Available No t Available ammonium lactate 12 % lotion apply to feet twice daily as needed 2020 active Not Available Not Available Not Avai lable azithromyci n 250 mg tablet TAKE 2 TABLETS BY MOUTH EVERY DAY FOR 1 DAY THEN TAKE 1 TABLET BY MOUTH DAILY FOR 4 DAYS active Not Available Not Available No t Available benzonatate 200 mg capsule TAKE 1 CAPSULE BY MOUTH THREE TIMES DAILY active Not Available Not Available No t Available hydrocodone 5 mg-acetamin ophen 325 mg tablet TAKE 1 TO 2 TABLETS BY MOUTH EVERY 4 TO 6 HOURS NEEDED FOR PAIN 06/27 completed Not Available Not Available Not Available ondansetron HCl 4 mg tablet TAKE 1 TABLET BY MOUTH FOUR TIMES DAILY NEEDED FOR NAUSEA 06/27 completed Not Available Not Available Not Available Compazine 10 mg tablet Take 1 tablet every 6 hours by oral route as needed. 03/11 completed Not Available Not Available Not Available fluorouraci l 5 % topical cream APPLY TOPICALLY TWICE DAILY TO SCALY AREA ON NOSE FOR 7-1O DAYS. AVOID SUN EXPOSURE. active Not Available Not Available No t Available tramadol 50 mg tablet TAKE 1 TABLET BY MOUTH EVERY 8 HOURS NEEDED 06/27 completed Not Available Not Available Not Available ondansetron 8 mg disintegrat ing tablet take one every four hours as needed for nausea active Not Available Not Available No t Available promethazin e 25 mg tablet Take 1 tablet every 6 hours by oral route as needed. 06/27 completed Not Available Not Available Not Available diclofenac sodium 75 mg tablet,michael yed release Take 1 tablet(s) 2 TIMES A DAY by oral route with food 04/07 completed Not Available Not Available Not Available methylpredn isolone 4 mg tablets in a dose pack FOLLOW PACKAGE DIRECTION S 07/19 completed Not Available Not Available Not Available ondansetron 4 mg disintegrat ing tablet Take one tablet as needed four times daily for nausea 06/27 completed Not Available Not Available Not Available nitrofurant oin monohydrate /macrocryst als 100 mg capsule TAKE 1 CAPSULE BY MOUTH EVERY 12 HOURS FOR 7 DAYS 06/27 completed Not Available Not Available Not Available vitamin K 2018 active Not Available Not Available Not Avai lable vitamin B complex active Not Available Not Available Not Available Reclast 07/18 completed Not Available Not Available Not Available Vitamin D-3 with Aloe 2018 active Not Available Not Available Not Avai lable Prolia 60 mg/mL subcutaneou s syringe INJECT 1 MILLILITE R (60 MG) BY SUBCUTANE OUS ROUTE EVERY 6 MONTHS IN THE UPPER ARM, UPPER THIGH OR ABDOMEN active Not Available Not Available No t Available vitamin K2 2018 active Not Available Not Available Not Avai lable glucosamine 116 mg-chondroi tin 100 mg-dietary supplement #25 capsule Take by oral route. 06/20 completed Not Available Not Available Not Available Shingrix (PF) 50 mcg/0.5 mL intramuscul ar suspension, kit 06/20 completed Not Available Not Available Not Available cannabidiol (CBD) oral oil Take by oral route. 06/20 completed Not Available Not Available Not Available turmeric 06/27 completed Not Available Not Available Not Available Fluad 65yr up(PF)45 mcg(15 mcgx3)/0.5 mL intramuscul ar syringe ADM 0.5ML IM UTD 06/20 completed Not Available Not Available Not Available BinaxNOW COVID-19 Ag Self Test kit TEST DIRECTED TODAY 02/20 completed Not Available Not Available Not Available Paxlovid 300 mg (150 mg x 2)-100 mg tablets in a dose pack Take two of he 150 mg tablets and one of the 100 mg tablets twice daily for five days active Not Available Not Available No t Available Vitals Date Recorded Body weight Body mass index (BMI) Body height Oxygen saturation Oxygen saturation in Arterial blood by Pulse oximetry Pain severity - 0-10 verbal numeric rating [Score] - Reported Heart rate Respiratory rate Body temperature Systolic blood pressure Diastolic blood pressure Provider Name and Address Organization Details Last Updated DateTime 2 13186.1 5 g 24.3 kg/m2 160.02 cm 98 % 98 % 0 67 /min 12 /min 97.2 [degF] 122 mm[Hg] 60 mm[Hg] Not Available [facility] 3 00:47:21 Date Recorded Body weight Body mass index (BMI) Body height Oxygen saturation Oxygen saturation in Arterial blood by Pulse oximetry Heart rate Body temperature Systolic blood pressure Diastolic blood pressure Provider Name and Address Organization Details Last Updated DateTime 2 97578.7 9 g 22.1 kg/m2 165.1 cm 97 % 97 % 82 /min 97 [degF] 118 mm[Hg] 78 mm[Hg] Not Available [facility] 3 00:47:21 Date Recorded Body height Body mass index (BMI) Body weight Heart rate Body temperature Oxygen saturation Oxygen saturation in Arterial blood by Pulse oximetry Systolic blood pressure Diastolic blood pressure Provider Name and Address Organization Details Last Updated DateTime 3 165.1 cm 20.8 kg/m2 11817.0 5 g 69 /min 97 [degF] 95 % 95 % 120 mm[Hg] 64 mm[Hg] Virginie Coley [employer] [facility] [employer] 3 10:58:56 Date Recorded Body height Body weight Heart rate Body temperature Oxygen saturation Oxygen saturation in Arterial blood by Pulse oximetry Systolic blood pressure Diastolic blood pressure Provider Name and Address Organization Details Last Updated DateTime 4 172.72 cm 99659.1 5 g 69 /min 97 [degF] 96 % 96 % 118 mm[Hg] 62 mm[Hg] DEXTER Barnes [place] [facility] [employer] [facility] 4 10:37:17 Social History Question Answer Notes LastModified by Organizat ion Details LastModified Time Tobacco Smoking Status Never Smoker Not Available [facility] 05/14/2022 00:43:37 Do You Have An Advance Directive? Yes [id number] Information not available 05/14/2022 What Is Your Level Of Alcohol Consumption? Occasional [id number] Information not available 05/14/2022 Do You Wear A Helmet When Biking? Yes [id number] Information not available 05/14/2022 Are You Blind Or Do You Have Difficulty Seeing? No [id number] Information not available 05/14/2022 Are You Deaf Or Do You Have Serious Difficulty Hearing? No [id number] Information not available 05/14/2022 What Type Of Diet Are You Following? REGULAR [id number] Information not available 05/14/2022 Do You Or Have You Ever Used E-cigarettes Or Vape? Never Used Electronic Cigarettes [id number] Information not available 05/14/2022 Have There Been Any Changes To Your Family Or Social Situation? No [id number] Information not available 05/14/2022 What Is The Fluoride Status Of Your Home? Unknown [id number] Information not available 05/14/2022 Are There Any Guns Present In Your Home? Yes Information not available 02/20/2023 Do You Use Insect Repellent Routinely? No [id number] Information not available 05/14/2022 Where [facility] You Live? [facility] Information not available 02/23/2024 Guns Present In The Home? Yes [email or web address] Information not available 02/20/2023 Are You Able To Care For Yourself? Yes [email or web address] Information not available 02/20/2023 Are You Blind Or Do Yo Have Difficulty Seeing? No [email or web address] Information not available 02/20/2023 Are You Deaf Or Do You Have Serious Difficulty Hearing? No [email or web address] Information not available 02/20/2023 Live Alone Of With Others? With Others [email or web address] Information not available 02/20/2023 Do You Have A Medical Power Of Cement [employer] Car [employer]er? Yes [email or web address] Information not available 02/20/2023 What Was The Date Of Your Most Recent Tobacco Screening? 02/23/2024 [email or web address] Information not available 02/23/2024 Do You Have Any Pets? Yes MIGRATION.[id number] Information not available 05/14/2022 What Is Your Relationship Status? MIGRATION.88024 [id number] Information not available 05/14/2022 Do You Use Your Seat Belt Or Car Seat Routinely? Yes MIGRATION.61715 [id number] Information not available 05/14/2022 Do You Have Smoke And Carbon Monoxide Detectors In Your Home? Yes MIGRATION.32868 32285 Information not available 05/14/2022 Are You Passively Exposed To Smoke? No MIGRATION.26070 20068 Information not available 05/14/2022 Are There Any Smokers In Your House? No MIGRATION.22743 30602 Information not available 05/14/2022 Do You Use Sunscreen Routinely? Yes MIGRATION.64726 57385 Information not available 05/14/2022 Have You Recently Traveled Abroad? No MIGRATION.67815 36515 Information not available 05/14/2022 Do You Have Any Dietary Restrictions? No MIGRATION.55202 00784 Information not available 05/14/2022 Sex: Unknown Functional Status Question Answer Note LastModified by Organizat ion Details LastModified Time Do you have difficulty walking or climbing stairs? No MIGRATION.[id number] 026 Information not available 05/14/2022 Do you have transportation difficulties? No MIGRATION.[id number] 026 Information not available 05/14/2022 Are you able to walk? YESWOREST MIGRATION.[id number] 026 Information not available 05/14/2022 Do you have difficulty doing errands alone? No MIGRATION.[id number] 026 Information not available 05/14/2022 Are you able to care for yourself? Yes MIGRATION.[id number] 026 Information not available 05/14/2022 Do you have difficulty dressing or bathing? No MIGRATION.[id number] 026 Information not available 05/14/2022 What is your exercise level? Moderate MIGRATION.[id number] 026 Information not available 05/14/2022 Mental Status Question Answer Note LastModified by Organizat ion Details LastModified Time Do you have difficulty concentrating, remembering or making decisions? No MIGRATION.[id number] Information not available 05/14/2022 Family History Relationship Description Onset Age of this Age Resolved Age Notes LastModified by Organization Details LastModified Time Mother Family history of stroke MIGRATION.[id number] Not available 05/14/2022 00:45:15 Mother Pulmonary embolism MIGRATION.099 [id number] Not available 05/14/2022 00:45:15 Maternal Grandfather Diabetes mellitus MIGRATION.144 [id number] Not available 05/14/2022 00:45:15 Medical History Condition Response NERVE DISEASE N BLINDNESS N RHEUMATIC FEVER N KIDNEY STONES N BLADDER PROBLEMS N MRSA N CARPAL TUNNEL SYNDROME N OTHER # 1 N POLIO N LUNG DISEASE/DISORDER N HISTORY OF DRUG ABUSE N COPD N RADIATION / CHEMOTHERAPY N Other # 2 N SPORTS INJURY N ANKLE PAIN N BLOOD DISEASES N EAR OR HEARING PROBLEMS N MUMPS N SCHIZOPHRENIA N SHINGLES N BOWEL PROBLEMS N SHOULDER PAIN N DEPRESSION (INCLUDING POST ) N STROKE/TIA N ULCERS N KNEE PAIN N BENIGN PROSTATIC HYPERPLASIA N MEASLES N HYPOTENSION N MYOCARDIAL INFARCTION N OBESITY N GERD/NAUSEA N ANEURYSM N URINARY/BLADDER/KIDNEY PROBLEMS N CORONARY ARTERY DISEASE (CAD) N ADDICTION CONCERNS N ENDOMETRIOSIS N Impotence N USE OF BLOOD THINNERS N SKIN PROBLEMS N EMPHYSEMA N GASTROINTESTINAL DISORDER N PERIPHERAL VASCULAR DISEASE N MUSCLE,JOINT OR BONE PROBLEMS N DVT N STOMACH ULCERS N GASTROINTESTINAL BLEEDING N BLOOD CLOTS N ASTHMA N CATARACTS N USE OF NSAIDS N CONCUSSION OR SPINAL TRAUMA N ERECTILE DYSFUNCTION N VARICOSITIES N GI PROBLEMS N Low Testosterone N NEUROPATHY N INFERTILITY N AIDS/HIV N FRACTURES N CHEMOTHERAPY / RADIATION N LIVER DISEASE N MALE HYPOGONADISM N ELBOW PAIN N HYPERTENSION N Deficiency N TOURETTE'S N ANXIETY DISORDER N Metal allergy Y BLOOD TRANSFUSION N ANEMIA/BLOOD DISORDER N CHRONIC EAR INFECTIONS N BIPOLAR DISORDER N BRONCHITIS N OSTEOARTHRITIS N TUBERCULOSIS N GLAUCOMA N FOOT PROBLEM N HEART VALVE DISORDERS N DIVERTICULITIS N SLEEP APNEA N CHICKENPOX N ALLERGIES/HAYFEVER N SOFT TISSUE INJURY N INFECTIOUS DISEASE N PROSTATE N HEART ARRHYTHMIA N INSOMNIA N RHEUMATOID ARTHRITIS N HIGH CHOLESTEROL / HYPERLIPIDEMIA N EYE PROBLEMS N HYPERTHYROIDISM N EDEMA N CHRONIC PAIN SYNDROME N HYPOTHYROIDISM N CAROTID BLOCKAGE N CONSTIPATION N BACK / NECK PROBLEMS N HAVE YOU BEEN HOSPITALIZED OR SEEN IN [facility] IN THE PAST YEAR ? N ATHEROSCLEROSIS N BURSITIS N BREAST PROBLEMS N HERNIATED DISC N DIALYSIS N ECZEMA N FIBROMYALGIA N OSTEOPOROSIS Y ARTHRITIS N NO SIGNIFICANT PAST MEDICAL HISTORY N PERIPHERAL NEUROPATHY N APPENDICITIS N DIABETES, TYPE N BAD TEETH N ENT N HEARTBURN / REFLUX N AUTISM SPECTRUM DISORDER (ASD) N HEPATITIS / LIVER DISEASE N GOUT N SLEEP DISORDER N ALZHEIMER'S DISEASE N Brain Problems N HERPES N DEMENTIA N HEADACHES/MIGRAINES N SEIZURES/EPILEPSY N VASCULAR DISEASE N PACEMAKER N Blood Disorder N HIP PAIN N DIZZINESS N HEAD TRAUMA OR INJURY N HEART DISEASE/HEART PROBLEMS N KIDNEY DISEASE N MULTIPLE SCLEROSIS N CARDIAC ARRHYTHMIA N CANCER: SPECIFY N ANESTHESIA COMPLICATIONS N ATRIAL FIBRILLATION N Gall Stones N PULMONARY EMBOLISM N AUTOIMMUNE DISEASE N Gynecological History Statement/Question Response Date of Last Mammogram Date of Last Colonoscopy Most Recent Bone Density Obstetrics History GPAL:G 0 P 0 0 0 0 Immunizations Vaccine Type Date Status Note Provider Nam e and Address Organization Details Recorded Time SARS-COV-2 (COVID-19) vaccine, UNSPECIFIED 3 completed Virginie Slecka null, [facility] 02/20/2023 10:59:45 influenza, unspecified formulation 3 completed Virginie Slecka null, [facility] 02/20/2023 11:00:05 Respiratory syncytial virus (RSV) vaccine, unspecified 3 completed Virginie Slecka null, [facility] [employer] [facility] 02/20/2023 11:00:25 influenza, unspecified formulation 2 completed Not Available [facility] 11/13/2022 18:46:20 COVID-19, mRNA, LNP-S, PF, 30 mcg/0.3 mL dose 1 completed Not Available [facility] 11/13/2022 18:46:20 COVID-19, mRNA, LNP-S, PF, 30 mcg/0.3 mL dose 1 completed Not Available [facility] 11/13/2022 18:46:20 COVID-19, mRNA, LNP-S, PF, 30 mcg/0.3 mL dose 1 completed Not Available [facility] 11/13/2022 18:46:19 Influenza, high-dose, quadrivalent, PF 0 completed Not Available [facility] 11/13/2022 18:46:19 Tdap 4 completed DEXTER Barnes [facility] [employer] [facility] 01/14/2024 17:00:31 Pneumococcal conjugate PCV20, polysaccharide LME037 conjugate, adjuvant, PF 4 completed DEXTER Barnes [facility] 02/23/2024 16:59:12 Past Encounters Encounter ID Performer Location Encounter Start Date Encounter Closed Date Diagnosis/Indication Diagnosis SNOMED-CT Code Diagnosis ICD10 Code Diagnosis Note [id number] [facility] Internal Med Shabbirvi lltobin [address] [place] [address] 05/18/2020 00:00:00 05/18/2020 11:58:54 [id number] [facility] Podiatry [place] [address] [place] [address] 05/21/2020 00:00:00 05/21/2020 11:24:41 [id number] [facility] Ortho [place] [address] [place] [address] 06/20/2020 00:00:00 06/20/2020 15:21:51 [id number] [facility]o [place] [address] [place] [address] 07/18/2020 00:00:00 07/22/2020 15:27:42 [id number] [facility] Internal Med Horace [address] [place] [address] 10/19/2020 00:00:00 10/19/2020 11:23:09 [id number] [facility] Internal Med Horace negro [address] [place] [address] 04/26/2021 00:00:00 04/26/2021 12:42:40 [id number] [facility] [address] [address] 06/27/2021 00:00:00 06/27/2021 17:28:00 [id number] [facility] Ortho [place] [address] [place] [address] 07/19/2021 00:00:00 07/19/2021 11:44:00 [id number] [facility] Internal Med [place]abbirvi [place]le [address] [place] [address] 08/23/2021 00:00:00 08/23/2021 12:13:48 [id number] [facility] Internal Med Horace negro [address] [place] [address] 02/21/2022 00:00:00 02/21/2022 11:54:15 [id number] Alan Duarte MD [facility] Internal Med Horace negro [address] [place] [address] 02/20/2023 10:52:47 02/20/2023 11:19:42 Adult health examination 924847512 Z00.00 Screening for disorder 163742408 Z13.9 Renal mass 278060954 N28 .89 Osteoporosis 21189530 M8 1.0 Screening for cardiovascular system disease 685033888 Z13.6 Vitamin D deficiency 347 71143 E55.9 [id number] Alan Duarte MD [facility] Primary Care [facility] [address] [place] [address] 02/23/2024 10:26:31 02/23/2024 12:08:33 Adult health examination 077574044 Z00.00 Screening for disorder 643166618 Z13.9 Renal mass 155511168 N28 .89 Osteoporosis 44981609 M8 1.0 Gastroesop hageal reflux disease 743655878 K21.9 [id number] Alan Duarte MD [facility] Primary Care [facility] [address] [place] [address] 02/23/2024 14:11:27 02/23/2024 14:12:37 Health Concerns Section Related Observation LastModified by Organization Detai ls LastModified Time None Recorded Concern Status LastModified by Organization Details LastModified Time None Recorded Advance Directives Directive Y: Payers Encounter Date Sequence Insurance Name Policy Number Policy Bell Covered Member ID Bell Member ID Guarantor Name 02/20/2023 1 [place] Loli Santos [id number] Loli Santos 02/20/2023 2 [place] [id number] Loli Santos [id number] Loli Knowlesara 02/23/2024 1 [place] Loli [place] [id number] Loli Santos 02/23/2024 2 [place] [id number] Loli Santos [id number] Loli Knowlesara 02/23/2024 1 [place] Loli Santos [id number] Loli Knowlesara 02/23/2024 2 [place] [id number] Loli Santos [id number] Loli Santos Notes Date Note Type Note Provider Name and Address Organization Details Recorded Time 02/21/20 23 text/htm l Patient Name: Loli SantosDate Of Service: Thursday ( 02.20.2023 ): 1945 Age: 77 There has been approximately a 18 lb weight loss since 02/21/2022. This represents approximately a 13.5% change in weight. Weight change attributable to lifestyle changes. Vital Signs:Blood Pressure: Sitting Rt. Arm 120/64Pulse: Sitting 69 /min and RegularRespiratory Rate: 12Height 68 in or 1.7 mWeight 115 lb or 52.2 kgBMI 17.5Temperature: 97 F or 36.1 CPulse Oximetry: 95 % at rest on no oxygen Chief Complaint: Addressed in HPI Problems or conditions discussed in the HPI were the only ones reviewed during the encounter.Only social and family history addressed in the HPI were reviewed during this encounter. A significant, separate E/M service was performed to evaluate the current and new problems. Attendant(s): NoneConstitutional and Systemic Symptoms:none Medication Reconciliation: from medication list. History of Present Illness Reviewed the findings of the preventative health visit. Addressed all areas with the patient, patient's family or caregivers. Preventative examinations and testing immunizations - vaccinations, colonic neoplasm screening, mammograms and DEXA scan and refuses all these all reviewed and ordered where patient was amenable to the recommendations. Cognitive function was normal. Depression addressed and where necessary medications were adjusted or instituted. End of life and living will briefly discussed with patient and where these can be filled out and legally executed. Other blood and imaging studies were ordered if considered necessary. Other recommendations may be found in the encounter note. #1. History of a Right renal mass clinically stable. Is followed over at [facility] with yearly MRIs. No change in over a year. Does not have any symptoms no pain. No history of any hematuria. No flank pain no other systemic or constitutional type symptomatology.: #2. osteoporosis. No new complaints of any additional back,hip or other musculoskeletal complaints related to the osteoporosis. No hx of any recent trauma. Currently taking OsCal-D. Has no DEXA scan for more than 1.5 years. The FRAX Score for Hip Fracture is NA hx osteoporosis FRAX score for major fractures NA hx of osteoporosisMedication List Reviewed and Reconciled 02/20/2023Vitamin D 4000 IU DailyOmega-3 500MG DailyTurmeric 500 MG DailyReclast 5 MG /100 ML (INJECTABLE - INTRAVENOUS) Monthly (On Hold)Prolia Every Six MonthsADRs List Reviewed 02/20/2023ldara Local ReactionVaccination and Qygyscthxwwh6029-42 Covid Booster Bqorsx1547-96 Covid Dnkqop7459-16 Tnqhwohpa5254-93 Vpntrqep6594-96 Vlwxcbzqx2960-45 Prevnar 13 GcSurgical HistoryC-section, TonsillectomyPreventative Testing Confirmed by Our Ttkcpbp0602/25/2022 ALBUMIN 4.5 G/DL H103/27/2020 CT THORAX, ABDOMEN AND NIWYDC4410/30/2003 MAMMOGRAM 10/29/2004Social HistoryDoes not smokeDrinks sociallyWorks as dentistExercises dailyFamily HistoryMother 81 squamous cell CA right leg and thyroid problems. Hx of the MVPFather 89 and doing wellOne brother living and in good healthMenarche 12 Menopause A Alan Duarte MD [address] [facility] [facility] [address], [place], [address], [place] - [facility] [employer] 02/20/2023 11:13:28 02/23/20 24 text/htm l Patient Name: Loli Paigete Of Service: Thursday ( 02.23.2024 ): 1945 Age: 78 There has been approximately a 22 lb weight gain since 02/20/2023. This represents approximately a 19.1% change in weight. Weight change attributable to lifestyle changes. Vital Signs:Blood Pressure: Sitting Rt. Arm 118/62Pulse: Sitting 69 /min and RegularRespiratory Rate: 16Height 68.0 in or 1.7 mWeight 137.0 lb or 62.1 kgBMI 20.8Temperature: 97.0 F or 36.1 CPulse Oximetry: 96 % at rest on no oxygen Chief Complaint: Addressed in HPI Problems or conditions discussed in the HPI were the only ones reviewed during the encounter.Only social and family history addressed in the HPI were reviewed during this encounter. A significant, separate E/M service was performed to evaluate the current and new problems. Attendant(s): NoneConstitutional and Systemic Symptoms:none Medication Reconciliation: from medication list. History of Present Illness Reviewed the findings of the preventative health visit. Addressed all areas with the patient, patient's family or caregivers. Preventative examinations and testing immunizations - vaccinations, colonic neoplasm screening and mammograms all reviewed and ordered where patient was amenable to the recommendations. Cognitive function was normal. Depression addressed and where necessary medications were adjusted or instituted. End of life and living will briefly discussed with patient and where these can be filled out and legally executed. Other blood and imaging studies were ordered if considered necessary. Other recommendations may be found in the encounter note. #1. History of an asymptomatic renal mass. The patient has been followed at [place] by Urology and has now decided not to do any further surveillance since it has been no change in size over several years.: #2. osteoporosis. No new complaints of any additional back,hip or other musculoskeletal complaints related to the osteoporosis. No hx of any recent trauma. Currently taking OsCal-D and Prolia. Has no DEXA scan for more than 1.5 years and showed osteoporosis. The FRAX Score for Hip Fracture is NA hx osteoporosis FRAX score for major fractures NA hx of osteoporosis#3. GERD clinically stable. Will start on some omeprazole 20 mg once daily. Has had some problems with reflux symptomatology also possibly some mild dysphagia at times. Does not wish to have an upper endoscopy done at this time. Will try the omeprazole but if no improvement will need consider an upper endoscopy. Active Medication ListVitamin D 4000 IU DailyVitamin B-complex DailyProlia Every Six Months Adverse Drug Reactions ReviewedAldara Local Reaction Vaccination and Immunization( ) 2018-12 SHINGRIX( ) 2017-12 PREVNAR 13 GC(X) 2018-11 PNEUMOVAX PREVNAR 20 Needed(X) 2019-12 INFLUENZA( ) 2020-05 COVID PFIZER(X) 2020-10 COVID BOOSTER PFIZER( ) 2023-11 TDAP Surgical Utupysf2030-45 C-brnjtky9813-60 Tonsillectomy Preventative Testing( ) 03/17/2023 Albumin 4.4 G/DL( ) 01/25/2021 CT Thorax, Abdomen And Pelvis(X) 10/30/2003 Mammogram 10/29/2005 Social HistoryDoes not smokeDrinks sociallyWorks as dentistExercises daily Family HistoryMother 81 squamous cell CA right leg and thyroid problems. Hx of the MVPFather 89 and doing wellOne brother living and in good healthMenarche 12 Menopause A Alan Duarte MD [address] [facility] [facility] [address], [place], [address], [place] [employer] 02/23/2024 10:57:44 OBGyn Episode No OBEpisode recorded.
--- OUTSIDE RECORDS SUMMARY | 2024-05-31 15:53 | XMS_ITS | Clinical Summary ---
Author Organization [facility] Address [address] [place] [address] Phone Care Team Providers Care Market Researcher Name Role Phone Jose Carlos Henderson MD Primary Care Provider [phone] Family History Medical History Relation Name Comments Breast Cancer Maternal Aunt Relation Name Status Comments Maternal Aunt Social History Tobacco Use Types Packs/Day Years Used Date Smoking Tobacco: Never Assessed Comments Unknown Sex and Gender Information Value Date Recorded Sex Assigned at Not on file Legal Sex Female 4:20 AM QA MANAGER Gender Identity Not on file Sexual Orientation Not on file Occupation Industry Job Start Date Job End Date Not on file Not on file Not on file Not on file Plan of Treatment Health Maintenance Due Date Last Done Comments DTAP/TDAP/TD VACCINES (1 - Tdap) 1965 PNEUMOCOCCAL VACCINE 50+ YEARS (1 of 1 - PCV) 03/23/18 97 ZOSTER VACCINE (1 of 2) 1996 OSTEOPOROSIS SCREENING 2011 RSV VACCINE (60+ or ) (1 - 1-dose 75+ series) 2021 INFLUENZA VACCINE (#1) 2023 Insurance MEDICARE PART A AND B [employer] ACCESS/TRUE [employer] (deja mi) PPO Care Teams Market Researcher Relationship Specialty Start Date End Date Jose Carlos Henderson MD [facility] [facility] [address] Radha COLLAZO [address] [place] [address] PCP - General Internal Medicine 05/29/10
--- OUTSIDE RECORDS SUMMARY | 2024-05-31 15:53 | XMS_ITS | Encounter Summary ---
Author Organization [employer] Address [address] [place] [address] Care Team Providers Care Pizzamaker Name Role Phone Jose Carlos Henderson MD Primary Care Provider [phone] Encounter Details Date Type Department Care Team (Late st Contact Info) Description 12/28/1998 Outpatient Historical [facility] Emre Galo MD [address] [place] [address] Social History Tobacco Use Types Packs/Day Years Used Date Smoking Tobacco: Never Assessed Comments Unknown Sex and Gender Information Value Date Recorded Sex Assigned at Not on file Legal Sex Female 4:20 AM MOLECULAR BIOLOGY DIRECTOR Gender Identity Not on file Sexual Orientation Not on file documented as of this encounter Plan of Treatment Not on file documented as of this encounter Visit Diagnoses Not on filedocumented in this encounter Care Teams Pizzamaker Relationship Specialty Start Date End Date Jose Carlos Henderson MD [address] [place] [address] DR Radha [address]AZ[address] [place] [address] PCP - General Internal Medicine 05/29/10 documented as of this encounter
--- OUTSIDE RECORDS SUMMARY | 2024-05-31 15:53 | XMS_ITS | Clinical Summary ---
Author Organization [facility] Address [address] [facility] [place] [address] Care Team Providers Care Basket Bottom Machine Operator Name Role Phone James Duarte MD Primary Care Provider [phone] Source Comments [facility],non-[facility] Affiliates and Associated Physician Practices is amultiple site organization consisting of ambulatory clinics and hospital sitesin [place], [place], [place] and [place]. This disclosure is being madepursuant to the Care Everywhere program and may not contain all information available regarding this patient. Last updated 17.[facility] [employer] Social History Tobacco Use Types Packs/Day Years Used Date Smoking Tobacco: Never Assessed Sex and Gender Information Value Date Recorded Sex Assigned at Not on file Gender Identity Not on file Sexual Orientation Not on file Plan of Treatment Health Maintenance Due Date Last Done Comments BONE DENSITY TESTING 1945 MEDICARE AWV 12 MONTHS 1945 HEPATITIS C SCREENING 03/18/1964 DTAP/TDAP/TD VACCINES (1 - Tdap) 1965 PNEUMOCOCCAL VACCINE 50+ (1 of 1 - PCV) 1996 ZOSTER VACCINE (1 of 2) 1996 Respiratory Syncytial Virus (RSV) Vaccine Pt: or over 60 yrs (1 - 1-dose 75+ series) 2021 COVID-19 VACCINE ( - 2023-2 5 season) 2023 INFLUENZA VACCINE (#1) 2023 DEPRESSION SCREENING 03/16/2024 HEPATITIS B VACCINE Aged Out No longe r eligible based on patient's age to complete this topic HIB VACCINE Aged Out No longer eligi ble based on patient's age to complete this topic HPV VACCINE Aged Out No longer eligi ble based on patient's age to complete this topic MENINGOCOCCAL (Group B) VACC INE SHARED DECISION-MAKING Aged Out No longer eligibl e based on patient's age to complete this topic MENINGOCOCCAL GROUPS A/C/Y/W VACCINE Aged Out No longer eligible b ased on patient's age to complete this topic Care Teams Basket Bottom Machine Operator Relationship Specialty Start Date End Date James Duarte MD [address] [place] [address] [address] [place] [address] PCP - General 12/27/20
--- OUTSIDE RECORDS SUMMARY | 2024-05-31 15:53 | XMS_ITS | Encounter Summary ---
Author Organization [employer] Address [address] [place] [address] Care Team Providers Care Slot Machine Department Floorperson Name Role Phone Jose Carlos Henderson MD Primary Care Provider [phone] Encounter Details Date Type Department Care Team (Late st Contact Info) Description 12/21/1998 Outpatient Historical [facility] Emre Galo MD [address] [facility] [address] [place] [address] Social History Tobacco Use Types Packs/Day Years Used Date Smoking Tobacco: Never Assessed Comments Unknown Sex and Gender Information Value Date Recorded Sex Assigned at Not on file Legal Sex Female 4:20 AM ROUNDHOUSE SUPERVISOR Gender Identity Not on file Sexual Orientation Not on file documented as of this encounter Plan of Treatment Not on file documented as of this encounter Visit Diagnoses Not on filedocumented in this encounter Care Teams Slot Machine Department Floorperson Relationship Specialty Start Date End Date Jose Carlos Henderson MD [address] [place] [address] DR Radha [address] [place] [address] PCP - General Internal Medicine 05/29/10 documented as of this encounter
--- OUTSIDE RECORDS SUMMARY | 2024-05-31 15:53 | XMS_ITS | Encounter Summary ---
Author Organization [facility] Address [address] [place] [place] [address] Care Team Providers Care Grain Operations Manager Name Role Phone James Duarte MD Primary Care Provider [phone] Encounter Details Date Type Department Care Team (Late st Contact Info) Description 12/28/2020 Lab Requisition [facility] [address] [place] [id number] Luis Fernando Pat MD [address] [address] Social History Tobacco Use Types Packs/Day Years Used Date Smoking Tobacco: Never Assessed Sex and Gender Information Value Date Recorded Sex Assigned at Not on file Gender Identity Not on file Sexual Orientation Not on file documented as of this encounter Plan of Treatment Not on file documented as of this encounter Procedures Procedure Name Priority Date/Time Associated Diagnosis Comments DERMATOPATHOLOGY Routine 12/26/2020 12:0 0 AM CDT documented in this encounter Results * DERMATOPATHOLOGY (12/26/2020 12:00 AM CDT) Case Report Dermatopathology Report Case: [id number] Authorizing Provider: Luis Fernando Pat MD Collected: 12/26/2020 12:00 AM Ordering Location: [facility] Received: 12/28/2020 08:14 AM Pathologist: Danyelle Gongora MD Specimen: Skin, right lat thigh 1 1:30 PM CDT DERMATOPATHOLOGY LABORATORY Final Diagnosis Specimen A. SKIN, right lat thigh: SQUAMOUS CELL CARCINOMA, WELL DIFFERENTIATED (C44.722) 1:30 PM CDT DERMATOPATHOLOGY LABORATORY Clinical History SCCA vs other. Path# [id number] 1:30 PM CDT DERMATOPATHOLOGY LABORATORY Gross Description Specimen A: Received is one formalin filled container labeled with the patient's name and designated right lat thigh. The specimen consists of a shave biopsy measuring [id number]. Jar 0. 1:30 PM CDT DERMATOPATHOLOGY LABORATORY Microscopic Description Specimen A. SKIN, right lat thigh: Arising in the epidermis and extending into the dermis there are irregularly shaped aggregates of keratinocytes showing evidence of premature cornification. 1:30 PM CDT DERMATOPATHOLOGY LABORATORY Disclaimer An external and internal positive and negative controls are appropriate for the histochemical, immunohistochemical and immunofluorescence stain(s) in this case (if any), except where stated explicitly. The performance characteristics of the stain(s) cited in this report were developed and its performance characteristic determined by the Dermatopathology Laboratory at [facility], directed by Dr. Adilene Tate. These tests need not be, and therefore are not, approved by the [place] Food and Drug Administration. The tests are used for clinical purposes. Billing Codes Specimen Charges Stain Charges 76577 1 1:30 PM CDT DERMATOPATHOLOGY LABORATORY Embedded Images 1:30 PM CDT DERMATOPATHOLOGY LABORATORY Pathology/Cytolog y TISSUE SPECIMEN FROM SKIN / Unknown 12/26/2020 12/28/2020 8:14 AM CDT Luis Fernando Pat MD LAB - PATHOLOGY/CYTO LOGY ORDERABLES DERMATOPATHOLOGY LABORATORY [facility] - Department of Dermatology [facility] [address] [place] [address], [address] [phone] documented in this encounter Visit Diagnoses Not on filedocumented in this encounter Care Teams Grain Operations Manager Relationship Specialty Start Date End Date James Duarte MD [address] [place] [address] [address] [place] [address] PCP - General 12/27/20 documented as of this encounter
[2024-05-31 17:01] VITALS: BP 135/76; PULSE 65; RESP 16; O2SAT 99
[2024-05-31] MEDS: ONDANSETRON INJ 4 MG/2 ML VIAL IV PUSH (17:35)
[2024-05-31] MEDS: MECLIZINE HCL 25 MG TABLET PO (17:36)
[2024-05-31] MEDS: SODIUM CHLORIDE 0.9% IV 500 ML 999 ML IV CONT (17:36)
--- OUTSIDE RECORDS SUMMARY | 2024-05-31 18:14 | XMS_ITS | Referral Summary ---
Author Organization [facility] Address [address] [place] [address] Care Team Providers Care Station Manager Name Role Phone James Duarte MD Primary Care Provider Constantino Pat MD Unavailable [phone] Encounters Date Type Department Care Team Description 05/24/2024 9:30 AM CDT Infusion [facility] Injection Therapy [address] [facility] [address] [place] [address] Age-related osteoporosis without current pathological [...] 04/03/2022 Assessment & Plan (04/03/2022 11:25 AM MOVING PICTURE PRODUCER): -pt c/o fluctuating vision; improves when using Blink drops (gtts) (+)meibomian gland dysfunction (MGD) both eyes (OU) today -rec warm compresses; discussed rice sock as alternative option to warm washcloth -ok to continue blink prn -follow PVD (posterior vitreous detachment), left 2022 Assessment & Plan (04/03/2022 11:25 AM MOVING PICTURE PRODUCER): -longstanding per pt (-)retinal h/b/t noted in either eye today -s/s retinal detachment (RD) discussed; RTC BE if any sudden increase in floaters, flashes of light, or curtain over vision arise -follow 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 She wears distance only glasses for driving. Release updated glasses prescription. Assessment & Plan (04/03/2022 11:27 AM MOVING PICTURE PRODUCER): -status post (s/p) YAG per pt -pt [...] on file Legal Sex Female 12:05 PM MOVING PICTURE PRODUCER Gender Identity Female 01/10/2019 6:25 AM CDT [...] Bone mineral density was performed on a HoloHashCube Discovery Densitometer. Based on machine cross-calibration and [...] by the International Society of Clinical Densitometry. [id number] Ailin Henderson MD IMG DXA PROCEDURES Final Resu lt from Last 3 Months or Most Recently Relevant to Health Maintenance Insurance MEDICARE [facility] MEDICARE BLUE CROSS MEDICARE SUPPLEMENT MEDICARE [facility] MEDICARE Care Teams Station Manager Relationship Specialty Start Date End Date James Duarte MD [address] [place] [address] PCP - General Internal Medicine 02/01/19 Constantino Pat MD [address] [place] [address] Couples Therapist Dermatology 01/03/21
--- OUTSIDE RECORDS SUMMARY | 2024-05-31 18:14 | XMS_ITS ---
Author Organization [facility] Address [address] [address] Care Team Providers Care Skein Winder Name Role Phone James Duarte MD Primary Care Provider Constantino Pat MD Unavailable [phone] Active Problems Problem Noted Date Diagnosed Date Meibomian gland dysfunction (MGD) of both eyes 0 04/03/2022 Assessment & Plan (04/03/2022 11:25 AM ALUMINUM WELDER): -pt c/o fluctuating vision; improves when using Blink drops (gtts) (+)meibomian gland dysfunction (MGD) both eyes (OU) today -rec warm compresses; discussed rice sock as alternative option to warm washcloth -ok to continue blink prn -follow PVD (posterior vitreous detachment), left 2022 Assessment & Plan (04/03/2022 11:25 AM ALUMINUM WELDER): -longstanding per pt (-)retinal h/b/t noted in either eye today -s/s retinal detachment (RD) discussed; RTC BE if any sudden increase in floaters, flashes of light, or curtain over vision arise -follow 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 She wears distance only glasses for driving. Release updated glasses prescription. Assessment & Plan (04/03/2022 11:27 AM ALUMINUM WELDER): -status post (s/p) YAG per pt -pt [...]
--- OUTSIDE RECORDS SUMMARY | 2024-05-31 18:14 | XMS_ITS | Clinical Summary ---
Author Organization [facility] Address [address] [address] Care Team Providers Care Design Technology Professor Name Role Phone James Duarte MD Primary Care Provider Constantino Pat MD Unavailable [phone] Allergies Active Allergy Reactions Criticality Noted Date [...] 04/03/2022 Assessment & Plan (04/03/2022 11:25 AM PUBLICATIONS INSPECTOR): -pt c/o fluctuating vision; improves when using Blink drops (gtts) (+)meibomian gland dysfunction (MGD) both eyes (OU) today -rec warm compresses; discussed rice sock as alternative option to warm washcloth -ok to continue blink prn -follow PVD (posterior vitreous detachment), left 2022 Assessment & Plan (04/03/2022 11:25 AM PUBLICATIONS INSPECTOR): -longstanding per pt (-)retinal h/b/t noted in either eye today -s/s retinal detachment (RD) discussed; RTC BE if any sudden increase in floaters, flashes of light, or curtain over vision arise -follow 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 She wears distance only glasses for driving. Release updated glasses prescription. Assessment & Plan (04/03/2022 11:27 AM PUBLICATIONS INSPECTOR): -status post (s/p) YAG per pt -pt [...] Team Description 05/24/2024 9:30 AM CDT Infusion [facility] Injection Therapy [address] [facility] [address] [place] [address] Age-related osteoporosis without current pathological fracture (Primary Dx) from Last 3 Months Immunizations Immunization Administration Dates Next Due Influenza, Trivalent, High D ose, Split, Preservative Free, Intramuscular 12/03/2017,11/28/2016,12/31/2015,12/11 Influenza, Trivalent, Preser vative Free, Intramuscular 01/10/2011 Pfizer SARS-CoV-2 Monovalent Vaccination (12+ Yrs) PURPLE 10/30/2020,04/11/2020 Pneumococcal Conjugate PCV 13 08/29/2014 Pneumococcal Polysaccharide PPV23 01/10/2011 ZOSTER Recombinant 01/18/2018 Surgical History Surgery Date Site/Laterality Comments [place] DELIVERY ONLY Section - (Added by TW Conv) [place] TONSILLECTOMY PRIMARY/SEC ONDARY <AGE 13 Tonsillectomy - [...] on file Legal Sex Female 12:05 PM PUBLICATIONS INSPECTOR Gender Identity Female 01/10/2019 6:25 AM CDT [...] by the International Society of Clinical Densitometry. [id number] Ailin Henderson MD IMG DXA PROCEDURES Final Resu lt from Last 3 Months or Most Recently Relevant to Health Maintenance Insurance MEDICARE [facility] MEDICARE BLUE CROSS MEDICARE SUPPLEMENT MEDICARE [facility] MEDICARE Care Teams Design Technology Professor Relationship Specialty Start Date End Date James Duarte MD [address] [place] [address] PCP - General Internal Medicine 02/01/19 Constantino Pat MD [address] [facility] [place] [place] [address] Scrip Clerk Dermatology 01/03/21
--- OUTSIDE RECORDS SUMMARY | 2024-05-31 18:15 | XMS_ITS | Data Portability ---
Author Organization [facility] Address [address] [place] [address] Care Team Providers Care Parking Cashier Name Role Phone DARLEEN DA SILVA Primary Care Provider [phone] Assessment Encounter Date Assessment Date Assessment LastModified by Organization Details LastModified Time 06/25/2017 06/25/2017 neoplasm x 2 - rec biopsy x 2 site: R dorsal foot ddx: lentigo vs LM site: R medial lower leg ddx: lentigo vs LM discussed at length benefit of bx for early diagnosis if atypical proliferations or melanoma. discussed these may also be irritated or benign sun spots or moles, but I do see irregular pigmentation and cannot give a diagnosis without biopsy for further evaluation. discussed if no treatment, and if are early melanoma, this can continue to grow and potentially spread. she would like to consider and may rtc for shave bx of these sites. rec rtc shave bx x 2 sites R dorsal foot and R medial lower leg Seborrheic keratoses - diagnosis reviewed. Pt reassured. benign nevi-not suspicious Lentigines - diagnosis reviewed. Avoid sun exposure and use sun protection. History of melanoma - no evidence of local or regional recurrence. fbse in 6 mo rtc shave bx x 2 R dorsal foot and R medial lower leg Not available 06/28/2017 16:38:05 07/07/2017 07/07/2017 neoplasm x 2 - biopsy x 2 site: R medial lower leg ddx: lentigo vs LM site: R dorsal foot ddx: atypical nevis Not available 07/07/2017 18:32:29 03/22/2018 03/22/2018 benign nevi-not suspicious Angioma - diagnosis reviewed. Pt. reassured. History of melanoma - no evidence of local or regional recurrence. fbse in 6 mo Not available 03/22/2018 12:11:21 09/20/2018 09/20/2018 neoplasm - biops y site: R posterior thigh ddx: atypical nevus benign nevi-not suspicious Lentigines - diagnosis reviewed. Avoid sun exposure and use sun protection. history of nonmelanoma skin cancer-no evidence of recurrence History of melanoma - no evidence of local or regional recurrence. fbse 6 mo Not available 09/20/2018 11:54:44 03/24/2019 03/24/2019 Actinic keratose s - precancerous diagnosis reviewed. cryo therapy x 3 sites treated: R medial cheek, L episcopalian discussed call if not resolved in 4 wks. discussed may consider efudex treatment if improved but not resolved. favor neurofibroma, less likely nevus lipomatosus L lateral ankle not suspicious no rx benign nevi-not suspicious Seborrheic keratoses - diagnosis reviewed. Pt reassured. history of nonmelanoma skin cancer-no evidence of recurrence History of melanoma - no evidence of local or regional recurrence. fbse 6 mo Not available 03/27/2019 22:22:21 Plan of Treatment Reminders Order Date Submit Date Provider Last Modified By Organization Details Last Modified Time Details Appointments None record ed. Lab pathol ogjohnathan, skin 019 09/21/19 19 [facility] (Pathology Department), [address], [place], [address], 9 13:39:18 pathol ogy, skin 018 07/08/19 18 lynda [facility], [address], [place], [address], 8 14:12:53 Referral None record ed. Procedures None record ed. Surgeries None record ed. Imaging None record ed. Medication Orders None record ed. Patient TargetsNo targets recorded. Patient InstructionsNo instructions recorded. Reason for Referral None Reported. Results Created Date Observation Date Name Description Value Unit Range Abnormal Flag Note LastModifiedBy Organization Detail LastModifiedTime Result Notes None recorded. Problems Name Problem SNOMED Code Status Onset Date Resolution Date Notes Provider Name and Address Organization Details Recorded Time Actinic keratosis 401325019 Active 017 Magi Roque MD 9 [facility], [facility] [address], [place], [address], LUCIANO Roque MD 7 14:04:48 Basal cell carcinoma of skin 967697061 Active 017 Magi Roque MD [address] [place] [address], [place] [address], [place], [address], LUCIANO Roque MD 7 14:04:51 Melanoma in situ of skin (clinical) 794399608 Active 017 07/2016 MIS R 1st/2nd distal toe web-Fie lds Magi Roque MD [address] [place] [address], [place] [address], [place], [address], LUCIANO Roque MD 7 11:21:28 Problem Notes None recorded. Procedures Surgical History Date Name Laterality Status Provider Name and Address Organization Details Recorded Time 0 Cryosurgery aks completed Magi Roque MD [address] [place] [address], [place] [address], [place], [address], LUCIANO Roque MD 03/27/2019 22:22:29 9 Shave Biopsy single completed Danna Roque MD 09/20/2018 11:59:54 8 biopsies- multiple 1 completed Andria Roque MD 07/07/2017 14:49:29 8 Cryosurgery benign lesions 1 completed Magi Roque MD [address] [place] [address], [address], [place], [address], LUCIANO Roque MD 03/22/2017 18:49:15 7 Biopsy completed Magi Roque MD [address] [place] [address], [facility] [address], [place], [address], LUCIANO Roque MD 01/04/2017 22:19:59 7 Biopsy completed Magi Roque MD [address] [place] [address], [address], [place], [address], LUCIANO Roque MD 08/03/2016 22:36:40 7 Cryosurgery aks completed Magi Roque MD [address] [place] [address], [facility] [address], [place], [address], LUCIANO Roque MD 08/03/2016 22:36:53 Imaging Results None recorded. Procedure Notes None recorded. Medical Equipment None Reported. Allergies Allergen ID Allergen Name Allergen Category Reaction Reaction Severity Criticality Documentation Date Start Date Code Code System Note Provider Name and Address Organization Details Recorded Time 1697 imiquimod medicatio n Not available Not available Not available 12/29/2016 19526 RxNorm Magi Roque MD [address] [place] [address], [place] [address], [place], [address], LUCIANO Roque MD 7 11:49:32 971 nickel environme nt Not available Not available Not available 08/03/2016 40063 29 RxNorm Magi Roque MD [address] [place] [address], [facility] [address], [place], [address], LUCIANO Roque MD 7 22:35:44 Medications Name Sig Start Date Stop Date Status Note LastModified by Organization Details LastModified Time hydrocodone 5 mg-acetaminophe n 325 mg tablet 03/19 completed Not Available Not Available Not Available clobetasol 0.05 % topical cream 08/11 completed Not Available Not Available Not Available imiquimod 5 % topical cream packet 07/31 completed Not Available Not Available Not Available diclofenac sodium 75 mg tablet,delayed release 03/24 completed Not Available Not Available Not Available methylprednisol one 4 mg tablets in a dose pack 03/22 completed Not Available Not Available Not Available piroxicam 20 mg capsule 03/22 completed Not Available Not Available Not Available Estrace 0.01% (0.1 mg/gram) vaginal cream 03/22 completed Not Available Not Available Not Available nitrofurantoin monohydrate/mac rocrystals 100 mg capsule 03/22 completed Not Available Not Available Not Available Glucosamine Chondroit Complx Advan 750 mg-100 mg-125 mg-1.65 mg tablet Take by oral route . 03/22 completed Not Available Not Available Not Available Durezol 0.05 % eye drops 08/11 completed Not Available Not Available Not Available Besivance 0.6 % eye drops,suspensio n 03/19 completed Not Available Not Available Not Available Vitamin D3 25 mcg (1,000 unit) chewable tablet Take by oral route . 07/07 completed Not Available Not Available Not Available Vitamin D2 active Not Available Not Av ailable Not Available Lotemax 0.5 % eye gel drops 03/19 completed Not Available Not Available Not Available Shingrix (PF) 50 mcg/0.5 mL intramuscular suspension, kit 09/20 completed Not Available Not Available Not Available Vitals None Recorded Social History Question Answer Notes LastModified by Organizat ion Details LastModified Time Tobacco Smoking Status Never Smoker LUCIANO Chris MD 07/31/2016 14:01:36 What Is Your Level Of Alcohol Consumption? Moderate Information not available 07/31/2016 Sun Exposure Moderate Information not available 07/31/2016 Do You Use Sunscreen Routinely? Yes Information not available 07/31/2016 Tanning Bed Exposure Yes Information not available 07/31/2016 Sex: Unknown Functional Status None recorded. Mental Status None recorded. Family History Relationship Description Onset Age of this Age Resolved Age Notes LastModified by Organization Details LastModified Time Maternal Aunt Malignant tumor of colon Not available 2016 14:01:00 Maternal Aunt Malignant tumor of breast Not available 2016 14:01:07 Maternal Aunt Psoriasis Not a vailable 07/31/2016 14:01:29 Maternal Grandfather Diabetes mellitus Not available 2016 14:01:14 Maternal Grandfather Psoriasis Not available 14:01:29 Son Psoriasis Not availabl e 07/31/2016 14:01:29 Medical History Condition Response Diabetes N Bleeding Disorder N Arthritis N Hyperthyroidism N Defibrillator N Cancer Y Stroke N Asthma N Hypothyroidism N Lupus N HIV/AIDS N Pacemaker N Anemia N Psoriasis N Hepatitis N Heart Disease N Hypertension N Gynecological HistoryNo gynecological history recorded. Obstetrics History GPAL:G 0 P 0 0 0 0 Past Encounters Encounter ID Performer Location Encounter Start Date Encounter Closed Date Diagnosis/Indication Diagnosis SNOMED-CT Code Diagnosis ICD10 Code Diagnosis Note [id number] Magi Roque MD Main Office [address] [place] [address] 07/31/2016 13:39:58 07/31/2016 14:53:29 Neoplasm of uncertain behavior of skin 69071228 D48.5 Actinic keratosis 622165 007 L57.0 History of malignant neoplasm of skin excluding melanoma 956276399 Z85.828 Senile hyperkeratosis 39 5806962 L82.1 [id number] Magi Roque MD Main Office [address] [place] [address] 12/15/2016 10:52:24 12/15/2016 11:58:24 Neoplasm of uncertain behavior of skin 66261799 D48.5 Melanocyti c nevus of trunk 944852455 D22.5 Lentigo 414519110 L81.4 History of malignant melanoma of the skin 3037934137 08 Z85.820 [id number] Magi Roque MD Main Office [address] [place] [address] 12/29/2016 11:14:18 12/29/2016 12:03:17 Neoplasm of uncertain behavior of skin 97377719 D48.5 [id number] Magi Roque MD Main Office [address] [place] [address] 03/19/2017 10:36:30 03/19/2017 11:20:50 Neoplasm of uncertain behavior of skin 70966412 D48.5 Inflamed s eborrheic keratosis 423191280 L82.0 Lentigo 138599015 L81.4 History of malignant neoplasm of skin excluding melanoma 933966771 Z85.828 [id number] Magi Roque MD Main Office [address] [place] [address] 7 06/25/2017 13:57:53 06/25/2017 15:11:16 Neoplasm of uncertain behavior of skin 06690351 D48.5 Senile hyperkeratosis 39 2686838 L82.1 Melanocyti c nevus of trunk 280310237 D22.5 History of malignant melanoma of the skin 7398671732 08 Z85.820 [id number] Magi Roque MD Main Office [address] [place] [address] 07/07/2017 14:10:49 07/07/2017 14:50:58 Neoplasm of uncertain behavior of skin 14518833 D48.5 [id number] Magi Roque MD Main Office [address] [place] [address] 03/22/2018 11:13:29 03/22/2018 12:28:00 Melanocytic nevus of trunk 561097348 D22.5 Melanocyti c nevus of upper limb 500978549 D22.62 History of malignant melanoma of the skin 2164028385 08 Z85.820 Hemangioma of skin 92428 006 D18.01 [id number] Magi Roque MD Main Office [address] [place] [address] 09/20/2018 11:12:04 09/20/2018 12:08:26 Neoplasm of uncertain behavior of skin 47825743 D48.5 Melanocyti c nevus of trunk 664131332 D22.5 History of malignant melanoma of the skin 0582759213 08 Z85.820 Melanocyti c nevus of skin of thigh 823962334 D22.72 [id number] Magi Roque MD Main Office [address] [place] [address] 03/24/2019 10:48:14 03/24/2019 11:44:21 Actinic keratosis 388972838 L57.0 Senile hyperkeratosis 39 6014026 L82.1 History of malignant melanoma of the skin 0688406656 08 Z85.820 Melanocyti c nevus of upper limb 396591670 D22.62 Health Concerns Section Related Observation LastModified by Organization Detai ls LastModified Time None Recorded Concern Status LastModified by Organization Details LastModified Time None Recorded Advance Directives Directive None Recorded Payers Encounter Date Sequence Insurance Name Policy Number Policy Bell Covered Member ID Bell Member ID Guarantor Name 06/25/2017 1 [place] CAMIL[place] Santos [id number] Loli Tom 06/25/2017 2 [place] [id number] Loli Knowlesara [id number] Loli Tom 07/07/2017 1 [place] Loli Knowlesara [id number] 76 Loli Tom 07/07/2017 2 [place] [id number] Knowlesara [id number] Loli Tom 03/22/2018 1 [place] Loli Skinner McNamara [id number] 76 Loli Tom 03/22/2018 2 [place] [id number] Skinner McNamara [id number] Loli Tom 09/20/2018 1 [place] Loli Knowlesara [id number] 76 Loli Tom 09/20/2018 2 [place] [id number] Knowlesara [id number] Loli Tom 03/24/2019 1 [place] Loli Knowlesara [id number] 76 Loli Tom 03/24/2019 2 [place] [id number] Skinner McNamara [id number] Loli Tom Notes Date Note Type Note Provider Name and Address Organization Details Recorded Time 06/25/2017 text/html full skin checkn o concerns starting vitamin D supplementation. just received notice that her levels are low. she did not return for biopsy on the R foot and the R lower leg. she feels she does not care if the spot on the foot is melanoma, she feels she would prefer to from melanoma than have that foot cut again. she also notes that she saw Dr Blackburn and he recommended she monitor these spots for growing and if growing, have removed. also with rough spots L episcopalian no bleeding spots, changing moles, or sores that don't want to heal. Magi Roque MD [address] [place] [address], [address], [place], [address], LUCIANO Roque MD 06/28/2017 16:38:26 07/07/2017 text/html biopsy x 2R dors al foot and R medial lower legno concerns Magi Roque MD [address] [place] [address], [facility] [address], [place], [address], LUCIANO Roque MD 07/12/2017 23:13:59 03/22/2018 text/html full body checkn o concerns no bleeding spots, changing moles, or sores that don't want to heal. Magi Roque MD [address] [place] [address], [address], [place], [address], LUCIANO Roque MD 03/24/2018 22:26:55 09/20/2018 text/html Full Body CheckN o areas of concern at this time. she is also continuing to see Dr Blackburn to check site R foot every 6 mo. no other bleeding spots, changing moles, or sores that don't want to heal. Magi Roque MD [address] [place] [address], [facility] [address], [place], [address], LUCIANO Roque MD 09/26/2018 12:03:13 03/24/2019 text/html new dx: osteopen ia full body checkno concerns rough area on the R medial cheek treated in the past but therealso with red rough spot L episcopalian spot on the L ankle there for many yrsno new changes. no other bleeding spots, changing moles, or sores that don't want to heal. Magi Roque MD [address] [place] [address], [address], [place], [address], LUCIANO Roque MD 03/27/2019 22:22:56 OBGyn Episode No OBEpisode recorded.
--- OUTSIDE RECORDS SUMMARY | 2024-05-31 18:15 | XMS_ITS | Clinical Summary ---
Author Organization [facility] Address [address] [place] [address] Phone Care Team Providers Care Cost Coordinator Name Role Phone Jose Carlos Henderson MD Primary Care Provider [phone] Family History Medical History Relation Name Comments Breast Cancer Maternal Aunt Relation Name Status Comments Maternal Aunt Social History Tobacco Use Types Packs/Day Years Used Date Smoking Tobacco: Never Assessed Comments Unknown Sex and Gender Information Value Date Recorded Sex Assigned at Not on file Legal Sex Female 4:20 AM LOGISTICS SUPPLY OFFICER Gender Identity Not on file Sexual Orientation [...] 2023 Insurance MEDICARE PART A AND B [employer] ACCESS/TRUE markedup PPO Care Teams Cost Coordinator Relationship Specialty Start Date End Date Jose Carlos Henderson MD [facility] [address] Radha COLLAZO [address] [place] [address] PCP - General Internal Medicine 05/29/10
--- OUTSIDE RECORDS SUMMARY | 2024-05-31 18:15 | XMS_ITS | Clinical Summary ---
Author Organization [facility] Address [address] [facility] [place] [address] Care Team Providers Care Vertical Contour Band Saw Operator Name Role Phone James Duarte MD Primary Care Provider [phone] Source Comments [facility],non-[facility] Affiliates and Associated Physician Practices is amultiple site organization consisting of ambulatory clinics and hospital sitesin [place], [place], [place] and [place]. This disclosure is being madepursuant to the Care Everywhere program and may not contain all information available regarding this patient. Last updated [facility] Social History Tobacco Use Types Packs/Day Years [...] age to complete this topic Care Teams Vertical Contour Band Saw Operator Relationship Specialty Start Date End Date James Duarte MD [address] [place] [address] [address] [place] [address] PCP - General 12/27/20
--- OUTSIDE RECORDS SUMMARY | 2024-05-31 18:15 | XMS_ITS | Encounter Summary ---
Author Organization [facility] Address 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
--- OUTSIDE RECORDS SUMMARY | 2024-05-31 18:15 | XMS_ITS | Encounter Summary ---
Author Organization [facility] Address 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
--- OUTSIDE RECORDS SUMMARY | 2024-05-31 18:15 | XMS_ITS | Encounter Summary ---
Author Organization [facility] Address [address] [place] [address] Care Team Providers Care Financial Foundations Representative Name Role Phone James Duarte MD Primary Care Provider [phone] Encounter Details Date Type Department Care Team (Late st Contact Info) Description 12/28/2020 Lab Requisition [facility] [address] [place] [address] Luis Fernando Pat MD [address] [place] [address] Social History Tobacco Use Types Packs/Day Years [...] AM CDT) Case Report Dermatopathology Report Case: [id number] Authorizing Provider: Luis Fernando Pat MD Collected: 12/26/2020 12:00 AM Ordering Location: [facility] Received: 12/28/2020 08:14 AM Pathologist: Danyelle Gongora MD Specimen: Skin, right lat thigh 1 1:30 PM CDT DERMATOPATHOLOGY LABORATORY Final Diagnosis Specimen A. SKIN, right lat thigh: SQUAMOUS CELL CARCINOMA, WELL DIFFERENTIATED (C44.722) 1:30 PM CDT DERMATOPATHOLOGY LABORATORY Clinical History [facility] vs other. Path# [id number] 1:30 PM CDT DERMATOPATHOLOGY LABORATORY Gross Description Specimen A: Received is one formalin filled container labeled with the patient's name and designated right lat thigh. The specimen consists of a shave biopsy measuring [id number]. Jar 0. 1:30 PM CDT DERMATOPATHOLOGY LABORATORY [...] characteristic determined by the Dermatopathology Laboratory at [facility], directed by Dr. Adilene Tate. These tests need not be, and therefore are not, approved by the [place] Food and Drug Administration. The tests are used for clinical purposes. Billing Codes Specimen Charges Stain Charges 96894 1 1:30 PM CDT DERMATOPATHOLOGY LABORATORY Embedded Images 1:30 PM CDT DERMATOPATHOLOGY LABORATORY Pathology/Cytolog y TISSUE SPECIMEN FROM SKIN / Unknown 12/26/2020 12/28/2020 8:14 AM CDT Luis Fernando Pat MD LAB - PATHOLOGY/CYTO LOGY ORDERABLES DERMATOPATHOLOGY LABORATORY [facility] - Department of Dermatology [facility] Medicine [address] [place] [address], [address] [phone] documented in this encounter Visit Diagnoses Not on filedocumented in this encounter Care Teams Financial Foundations Representative Relationship Specialty Start Date End Date James Duarte MD [address] [place] [address] [address] [place] [address] PCP - General 12/27/20 documented as of this encounter
--- NOTE | 2024-05-31 18:54 | PC.NURSE ---
patient called out for the bathroom. unhooked patient from monitor, Julissa SANZ unhooked abx that were done. patient ambulated to and from bathroom without assist. patient hooked back up to monitor and resting comfortably.
[2024-05-31 19:57] VITALS: BP 135/76; PULSE 71; RESP 14; O2SAT 100
== END 2024-05-31 19:58 | disposition home or self-care (01) ==
PROVIDERS: Physician Assistant; Emergency Provider Physician Assistant; PCP Internal Medicine
DX: R42 Dizziness and giddiness (principal); R94.31 Abnormal electrocardiogram [ECG] [EKG]; I45.10 Unspecified right bundle-branch block
CPT/HCPCS: 36415; 80053; 85025; 85610; 85730; 93005; 96361; 96374; 99284; A9270; J2405; J7040